=== PATIENT | female | born 1960 | race Caucasian/White ===

== ENCOUNTER 2023-09-22 09:01 | Inpatient (IN) ==
[2023-09-22] MEDS ORDERED: METOPROLOL TARTRATE 1 MG/ML VIAL IV STA ×2 (09:24→10:03)
[2023-09-22] MEDS ORDERED: SODIUM CHLORIDE 0.9% 1,000 ML IV ONE (09:24)
--- NOTE | 2023-09-22 09:33 | Emergency Department Note ---
Impression & Plan Atrial tachycardia, Acute hypokalemia, Acute dyspnea, Acute exacerbation of CHF (congestive heart failure) ED Provider Note HISTORY OF PRESENT ILLNESS: Patient is a 63-year-old female presenting with tachycardia. Patient was at a cardiology clinic appointment today when her heart rate was noted to be in the 160s and she appeared to be in atrial flutter and they sent her to the emergency department. Patient reports that her heart has felt this racing sensation for at least the last 3 weeks. She states that she has had a cold for the last 2 months and has been taking Robitussin daily. Other than that she has not had any changes in medications. Denies any DVT or PE history. She is on Coumadin and her INRs have been therapeutic. She denies any chest pain. Reports shortness of breath it has been ongoing for the last 2 months. Denies any nausea or vomiting. Denies any fevers. Denies any dysuria or hematuria. ROS: as above PHYSICAL EXAM: Constitutional: Patient appears in no acute distress. HENT: Head: Normocephalic and atraumatic. Eyes: EOMI, PERRL Mouth/Throat: Mucous membranes moist. Neck: Trachea midline. Neck supple. Cardiovascular: Tachycardic with regular rhythm. No murmurs, rubs or gallops. Intact distal pulses. Pulmonary/Chest: No respiratory distress. Breath sounds clear and equal bilaterally. No wheezes or rales. Abdominal: Abdomen soft, no tenderness, rebound or guarding. Musculoskeletal: No edema, tenderness or deformity noted. Skin: Warm and dry. No rash, erythema, pallor or cyanosis Psychiatric: Appropriate mood and affect for situation. Neurological: Alert and keenly responsive. CN II-XII grossly intact, moving all extremities equally and fully. MDM: - Vitals signs showed tachycardia - History obtained via patient. Patient presents with tachycardia. Patient was at cardiology clinic today when she had an EKG performed that showed atrial tachycardia with a heart rate in the 160s. Patient reports that she has felt like her heart has been racing and slightly short of breath for the last 3 weeks. Reports she has had a cold for the last 2 months and is not taking Robitussin. Denies any other medication changes. She is on Coumadin and states her INRs have been therapeutic. She is on Coumadin for history of aortic valve replacement. Denies any chest pain. - Chronic conditions affecting care: HTN; HLD; aortic valve replacement (1987; on coumadin) - Differential diagnoses include, but are not limited to: dysrhythmia; electrolyte abnormality; PE; ACS; medication side effect; pneumonia - Order placed for continuous cardiac monitoring. At this time, monitor showed rate of 125 bpm with regular rhythm, per my interpretation. - External medical records reviewed. [facility] cardiology clinic visit note from today reviewed. Patient had new onset atrial flutter with rates in the 160s at clinic. They reported that she was symptomatic with anxiety like symptoms and shortness of breath. They note that her last echocardiogram was in December 2021. - EKG reviewed by myself showed atrial flutter. Rate tachycardic at 155 bpm. QTc 487. No acute ischemic changes. - Laboratory workup interpreted by myself showed normal WBC; INR 4; hypokalemia (K 3.4); normal troponin; elevated BNP (549) - Patient given 1L NS and 10 mEq IV potassium replacement - CXR shows some pulmonary vascular congestion, per my interpretation - Patient initially given 5 mg of IV Lopressor and her heart rate went from the 160s to the 140s. She was then given an additional 5 mg of IV Lopressor and her heart rate went down to the 130s - Discussed case with facing machine operator on-call, Dr. Kim. He recommended admission to medicine service and plan for repeat echocardiogram. Plan for potential cardioversion inpatient. He ordered 40 mg of IV Lasix for the patient - Discussion was had with care coordinator about patient's case and need for admission - Hospitalist consulted for admission - Patient admitted to [facility] service for further evaluation and management. ASSESSMENT AND PLAN: Diagnosis: Atrial tachycardia; hypokalemia; CHF exacerbation; acute dyspnea Plan: admit Past Med/Surg History Medical History (Updated 09/22/23 @ 12:43 by Delilah Solomon MD) History of transcatheter aortic valve replacement (TAVR) Hypokalemia SOB (shortness of breath) Cough (HFpEF) heart failure with preserved ejection fraction Tachycardia On anticoagulant therapy Hypertension Hyperlipidemia Irregular heart beat Sleep apnea cpap Surgical History History of hysterectomy with unilateral oophorectomy History of open reduction and internal fixation (ORIF) procedure right tib/fib, ankle fx--hardware in place in ankle History of colonoscopy History of esophagogastroduodenoscopy (EGD) History of oral surgery History of tooth extraction wisdom teeth History of cardiac cath 1987 no stent H/O aortic valve replacement 1987 @ [facility]---follows with Dr. Sahu Social History Smoking Status: Never smoker Second Hand Exposure: No; Do You Dip or Chew Tobacco: No; Hx Alcohol Use: Yes Alcohol type: wine and hard liquor Hx Substance Use: No Preferred Language: German Communication Ability: Effective Pre Press Manager Required: No Beliefs That Will Affect Care: None Current Living Situation: Spouse Feels Safe at Home: Yes Assistive Devices: CPAP and Glasses Allergies Allergies Allergy/AdvReac Type Severity Reaction Status Date / Time codeine Allergy RASH Verified 10/02/18 10:19 Home Meds Home Medications Medication Instructions Recorded Confirmed amlodipine 5 mg tablet 2.5 mg PO QAM 10/01/18 09/22/23 amoxicillin 500 mg capsule 2,000 mg PO UD PRN prior to dental 10/01/18 09/22/23 procedures loratadine 10 mg tablet 10 mg PO DAILY PRN Allergy Symptoms 10/01/18 09/22/23 simvastatin 20 mg tablet 20 mg PO QAM 10/01/18 09/22/23 warfarin 5 mg tablet 2.5 mg PO QPM 10/01/18 09/22/23 PreserVision AREDS 1 tab PO AMPM 09/22/23 09/22/23 [id number]-[id number]-frizox tablet 1 tab PO QAM 09/22/23 09/22/23 Results & Data (ED) Vital Signs Vital Signs - 24 hr 09/22/23 09:08 09/22/23 09:29 09/22/23 09:29 Temperature 36.6 C Temperature Source Temporal Artery Scan Pulse Rate 154 H Pulse Rate [Apical] 165 H Respiratory Rate 16 Respiratory Depth Blood Pressure 122/79 Blood Pressure [Left Arm] Blood Pressure Mean 93 Blood Pressure Mean [Left Arm] Pulse Oximetry 95 96 Oxygen Delivery Method Room Air Sepsis Recent Fever Within 48 Hours No Sepsis New/Unexplained Change in Mental Status No Sepsis Action Taken by Nursing No Action Required 09/22/23 09:29 09/22/23 09:32 09/22/23 09:49 Temperature Temperature Source Pulse Rate 125 H 138 H Pulse Rate [Apical] Respiratory Rate Respiratory Depth Blood Pressure 152/116 H Blood Pressure [Left Arm] Blood Pressure Mean Blood Pressure Mean [Left Arm] Pulse Oximetry 96 Oxygen Delivery Method Room Air Sepsis Recent Fever Within 48 Hours Sepsis New/Unexplained Change in Mental Status Sepsis Action Taken by Nursing 09/22/23 09:54 09/22/23 10:08 09/22/23 10:14 Temperature Temperature Source Pulse Rate 132 H Pulse Rate [Apical] 133 H 132 H Respiratory Rate 18 16 Respiratory Depth Normal Normal Blood Pressure 140/113 H Blood Pressure [Left Arm] 152/116 H 142/119 H Blood Pressure Mean Blood Pressure Mean [Left Arm] 128 126 Pulse Oximetry 93 94 Oxygen Delivery Method Room Air Room Air Sepsis Recent Fever Within 48 Hours Sepsis New/Unexplained Change in Mental Status Sepsis Action Taken by Nursing 09/22/23 10:19 09/22/23 11:39 Temperature Temperature Source Pulse Rate 130 H 132 H Pulse Rate [Apical] Respiratory Rate Respiratory Depth Blood Pressure 118/90 122/95 Blood Pressure [Left Arm] Blood Pressure Mean Blood Pressure Mean [Left Arm] Pulse Oximetry Oxygen Delivery Method Sepsis Recent Fever Within 48 Hours Sepsis New/Unexplained Change in Mental Status Sepsis Action Taken by Nursing Laboratory Data 09/22/23 09:20 09/22/23 09:20 Lab Results 09/22/23 Range/Units 09:20 WBC 9.43 (4.8-10.8) K/ul RBC 4.77 (4.20-5.40) M/uL Hgb 13.8 (12.0-16.0) g/dl Hct 43.5 (37.0-47.0) % MCV 91.2 (80.0-100.0) fL MCH 28.9 (25.0-34.0) pg MCHC 31.7 L (32.0-36.0) g/dL RDW Std Deviation 52.2 H (36.4-46.3) fL RDW Coeff of Genet 15.7 H (11.5-14.5) % Plt Count 346 (130-400) K/uL MPV 10.9 (9.4-12.4) fL Immature Gran % (Auto) 0.5 % Neut % (Auto) 77.4 % Lymph % (Auto) 13.4 % [place] % (Auto) 6.5 % Eos % (Auto) 1.9 % Baso % (Auto) 0.3 % Neut # (Auto) 7.30 H (1.40-6.50) K/uL Lymph # (Auto) 1.26 (1.20-3.40) K/uL [place] # (Auto) 0.61 H (0.11-0.59) K/uL Eos # (Auto) 0.18 (0.00-0.50) K/uL Baso # (Auto) 0.03 (0.00-0.20) K/uL Immature Gran # (Auto) 0.05 (0.01-0.20) K/uL PT 40.5 H (9.0-12.0) Seconds INR 4.0 H (0.9-1.1) Sodium 143 (136-145) mmol/L Potassium 3.4 L (3.5-5.1) mmol/L Chloride 109 H (98-107) mmol/L Carbon Dioxide 24 (21-32) mmol/L Anion Gap 10 (3-11) BUN 15 (6-23) mg/dl Creatinine 0.83 (0.6-1.2) mg/dl Est Cr Clr Drug Dosing 91.3 ml/min Est GFR ( Amer) 87.6 ml/min Est GFR (Non-Af Amer) 75.6 ml/min BUN/Creatinine Ratio 18.1 (10-20) Glucose 110 H (70-99(Fasting)) mg/dl Calcium 9.2 (8.6-10.3) mg/dl Magnesium 2.0 (1.7-2.4) mg/dl Total Bilirubin 0.6 (0.2-1.0) mg/dl AST 22 (13-39) U/L ALT 24 (7-52) U/L Alkaline Phosphatase 103 (34-104) U/L Troponin I High Sens 10.1 (0-14) pg/ml B-Natriuretic Peptide 549 H (0-100) pg/ml Total Protein 7.0 (6.0-8.3) gm/dl Albumin 4.1 (3.4-5.0) gm/dl Globulin 2.9 (2.5-4.0) gm/dl Albumin/Globulin Ratio 1.4 (0.9-2) Lipase 21 (11-82) U/L Administered Medications Discontinued Medications Sodium Chloride (Nss) 1,000 mls @ 999 mls/hr IV .Q1H1M ONE Stop: 09/22/23 10:24 Last Infusion: 09/22/23 11:39 Dose: Infused Documented By: Admin: 09/22/23 09:29 Dose: 999 mls/hr Documented By: ANEL Potassium Chloride (K Ye / Wtr) 10 meq in 100 mls @ 100 mls/hr IV ONE ONE Stop: 09/22/23 11:02 Last Infusion: 09/22/23 11:39 Dose: Infused Documented By: Admin: 09/22/23 10:19 Dose: 100 mls/hr Documented By: MARTÍN Metoprolol Tartrate (Metoprolol Tartrate 1 Mg/Ml Vial) 5 mg IV NOW STA Stop: 09/22/23 09:25 Last Admin: 09/22/23 09:49 Dose: 5 mg Documented By: MARTÍN Metoprolol Tartrate (Metoprolol Tartrate 1 Mg/Ml Vial) 5 mg IV NOW STA Stop: 09/22/23 10:04 Last Admin: 09/22/23 10:19 Dose: 5 mg Documented By: MARTÍN Imaging Data Radiologist's Impression: Chest X-Ray 09/22/23 09:13 XR chest 1V portable HISTORY: 62 years-old Female Chest pain, nonspecific COMPARISON: None TECHNIQUE: AP view of the chest FINDINGS: Cardiac silhouette is enlarged. Median sternotomy. Pulmonary vascular congestion with interstitial coarsening. No pneumothorax. Mild bibasilar densities. Asymmetric right hilar prominence. Degenerative changes of the shoulders and spine. IMPRESSION: 1. Cardiomegaly with pulmonary vascular congestion. 2. Asymmetric right hilar prominence is noted without comparison available. Differential considerations include adenopathy, pulmonary lesion versus summation density from pulmonary vasculature. Correlate with prior imaging. ACT 112: Negative or not required by law. The above report was generated using voice recognition software. It may contain grammatical, syntax or spelling errors. Electronically signed by: Emil Balderas M.D. 09/22/2023 9:43 AM Discharge Plan Visit Data Chief Complaint: Tachycardia Stated Complaint: TACHYCARDIA ED Provider: Delilah Solomon Discharge Problem: Atrial tachycardia, Acute hypokalemia, Acute dyspnea, Acute exacerbation of CHF (congestive heart failure) Forms Stand Alone Forms: My [facility] Prescriptions Prescriptions: No Action amoxicillin 500 mg Capsule 2,000 mg PO UD PRN (Reason: prior to dental procedures) amlodipine 5 mg Tablet 2.5 mg PO QAM simvastatin 20 mg Tablet 20 mg PO QAM warfarin 5 mg Tablet 2.5 mg PO QPM Rx Instructions: everyday but monday. None on tuesdays loratadine 10 mg Tablet 10 mg PO DAILY PRN (Reason: Allergy Symptoms) Centrum Silver Tablet 1 tab PO QAM PreserVision AREDS 1 tab PO AMPM Referrals Referrals: Madeline Messina DO [Primary Care Provider] -
[2023-09-22 09:43] LABS: Basophils # (auto) 0.03 K/uL (0.00-0.20); Basophils % (auto) 0.3 %; Eosinophils # (auto) 0.18 K/uL (0.00-0.50); Eosinophils % (auto) 1.9 %; Hematocrit (blood only) 43.5 % (37.0-47.0); Hemoglobin 13.8 g/dl (12.0-16.0); Immature Granulocytes # (auto) 0.05 K/uL (0.01-0.20); Immature Granulocytes % (auto) 0.5 %; Lymphocytes # (auto) 1.26 K/uL (1.20-3.40); Lymphocytes % (auto) 13.4 %; Mean Corpuscular Hemoglobin 28.9 pg (25.0-34.0); Mean Corpuscular Hgb Conc 31.7 g/dL (32.0-36.0); Mean Corpuscular Volume 91.2 fL (80.0-100.0); Mean Platelet Volume 10.9 fL (9.4-12.4); Monocytes # (auto) 0.61 K/uL (0.11-0.59); Monocytes % (auto) 6.5 %; Neutrophils % (auto) 77.4 %; Platelet Count 346 K/uL (130-400); RDW Coefficient of Variation 15.7 % (11.5-14.5); RDW Standard Deviation 52.2 fL (36.4-46.3); Red Blood Count 4.77 M/uL (4.20-5.40); White Blood Count 9.43 K/ul (4.8-10.8)
--- NOTE | 2023-09-22 09:44 | XRay Report ---
XR chest 1V portable HISTORY: 62 years-old Female Chest pain, nonspecific COMPARISON: None TECHNIQUE: AP view of the chest FINDINGS: Cardiac silhouette is enlarged. Median sternotomy. Pulmonary vascular congestion with interstitial co arsening. No pneumothorax. Mild bibasilar densities. Asymmetric right hilar prominence. Degenerative changes of the shoulders and spine. IMPRESSION: 1. Cardiomegaly with pulmonary vascular congestion. 2. Asymmetric right hilar prominence is noted without comparison available. Differential consideratio ns include adenopathy, pulmonary lesion versus summation density from pulmonary vasculature. Correlat e with prior imaging. ACT 112: Negative or not required by law. The above report was generated using voice recognition software. It may contain grammatical, syntax o r spelling errors. Electronically signed by: Emil Balderas M.D. 09/22/2023 9:43 AM
[2023-09-22 09:57] LABS: Albumin Globulin Ratio 1.4 (0.9-2); Albumin Level 4.1 gm/dl (3.4-5.0); BUN Creatinine Ratio 18.1 (10-20); Bilirubin,Total 0.6 mg/dl (0.2-1.0); Calcium 9.2 mg/dl (8.6-10.3); Creatinine Clr Calc Pharmacy 91.3 ml/min; Est GFR (African American) 87.6 ml/min; Est GFR (Non-African American) 75.6 ml/min; Globulin 2.9 gm/dl (2.5-4.0); Potassium 3.4 mmol/L (3.5-5.1)
[2023-09-22 10:03] LABS: Prothrombin Time 40.5 Seconds (9.0-12.0); Troponin I High Sensitivity 10.1 pg/ml (0-14)
[2023-09-22] MEDS ORDERED: POTASSIUM CHLORIDE / WTR 10 MEQ/100 ML PLCT IV ONE (10:03)
--- OUTSIDE RECORDS SUMMARY | 2023-09-22 11:21 | External Medical Summary | Summary of Care ---
Author Name Unknown Organization [facility] Address [address] [place] [address] Phone [phone] Care Team Providers Care National Flatbed Truck Driver Name Role Phone Madeline Messina Primary Care Provider Reason for Visit * Reason Comments Follow Up Encounter Details Date Type Department Care Team (Late st Contact Info) Description 09/22/2023 8:00 AM EST Office Visit Cardiology, [facility] [address] [facility] [phone] Linnette Corbin CRNP [address] [facility], [place] [phone] Atrial flutter, unspecified type (HCC)*; S/P aortic valve replacement; HTN, goal below 130/80; Dyslipidemia, goal LDL below 100; Enlarged aorta (HCC); MADAI (obstructive sleep apnea) Allergies Active Allergy Reactions Criticality Noted Date Comments Morphine And Related Rash 12/29/2008 Codeine documented as of this encounter (statuses as of 09/22/2023) Medications Medication Sig Dispensed Refills Start Date End Date Status LORATADINE 10 MG PO TABSIndications:All ergic rhinitis One pill by mouth once a day as needed for allergies 30 Tab 5 06/22/2012 Active Amoxicillin 500 MG Oral Capsule (AMOXIL)Indications :S/P aortic valve replacement,SBE (subacute bacterial endocarditis) prophylaxis candidate Take 4 tablets by mouth 1 hour prior to dental procedures 4 Cap 11 08/18/2020 Active CPAP every night at bedtime. 0 Active Multi-Day Vitamins Oral Tablet Take 1 Tab by mouth daily. 0 Active Warfarin Sodium 5 MG Oral Tablet (Coumadin)Indicatio ns:S/P aortic valve replacement TAKE 1/2 TABLET BY MOUTH DAILY OR DIRECTED BY COUMADIN CLINIC. 45 Tablet 3 10/05/2022 Active Simvastatin 20 MG Oral Tablet (Zocor)Indications: Dyslipidemia, goal LDL below 100 Take 1 Tablet by mouth in the morning. 90 Tablet 3 12/29/2022 Active ICaps AREDS Formula Oral Tablet Take by mouth. 0 Active amLODIPine Besylate 2.5 MG Oral Tablet (Norvasc) Take 1 Tablet by mouth in the morning. 90 Tablet 5 12/29/2022 Active Molnupiravir 200 MG Oral Capsule Take 4 Capsules by mouth in the morning and 4 Capsules before bedtime. 40 Capsule 0 02/17/2023 Active Additional Information Patient not taking.Reported on 09/22/2023 documented as of this encounter (statuses as of 09/22/2023) Active Problems Problem Noted Date Diagnosed Date Morbid obesity due to excess calories 09/06/2021 Body mass index (BMI) of 45.0 to 49.9 in adult 1 Overview: Per Obesity protocol #1 HTN, goal below 140/90 03/28/2016 Overview: Per HTN Protocol Dyslipidemia, goal LDL below 100 05/11/2010 [facility] current use of anticoagulant therapy 0 11/24/2009 Overview: ICD-10 update of inactive term Sleep apnea, obstructive 09/25/2009 Overview: CPAP 14 cwp 2008 PSG AHP S/P aortic valve replacement 12/29/2008 documented as of this encounter (statuses as of 09/22/2023) Resolved Problems Problem Noted Date Diagnosed Date Resolved Date Severe obesity with body mas s index (BMI) of 35.0 to 39.9 with serious comorbidity 01/11/2010 Overview: Per Obesity Taxonomy ICD-10 update of inactive diagnosis Obesity, BMI not known 08/08/200901/11 Overview: Per Obesity Taxonomy HTN, goal to be determined 08/04/2009 0 03/31/2016 ADVANCE DIRECTIVE INFORMATION 12/29/2008 08/31/2017 Overview: Yes. Pt advised to bring in copy. documented as of this encounter (statuses as of 09/22/2023) Immunizations Name Administration Dates Next Due COVID-19 mRNA, LNP-s, No Pre serve, 2-Dose Series (Moderna) 08/09/2021,01/18/2021,12/21/2020 Covid-19, Mrna, Lnp-s, Pf, B ivalent, 50 Mcg, IM, 12 yrs and above (Moderna) 08/20/2022 Pneumococcal Conjugate Vacc, 13 Valent (Prevnar) 09/03/2018 Pneumococcal Polysaccharide PPV23 (Pneumovax) 05/11/2010 SEASONAL INFLUENZA, PF, 6 M & Above, IM , (FLULAVAL or FLUZONE) 07/20/2020,07/27/2019,08/21/2017 Seasonal Influenza Virus Vac cine, Unspecified Formulation 07/18/2022 Seasonal Influenza, QUAD, wi th Preserv, 6 mons & Above, 0.5 mL, IM 07/19/2021 Seasonal Influenza, Quadriva lent, No Preserve, IM 08/20/2018,08/29/2016 Seasonal Influenza, Split, I IV3, With Preserve, Inj 07/14/2015,08/25/2014,08/02/2013,06/22,01/09/2012(Deferred: Patient Refused),08/13/2010,08/04/2009 TD, Preservative Free 09/05/2019 TDAP (age 11 and older)(Adacel) 05/05/2009 Zoster Vaccine Recombinant (Shingrix) 03/21/2023 ,12/29/2022 documented as of this encounter Social History Tobacco Use Types Packs/Day Years Used Date Smoking Tobacco: Never Smokeless Tobacco: Never Alcohol Use Standard Drinks/Week Comments Yes 0 (1 standard drink = 0.6 oz pur e alcohol) socially during holidays PHQ-2 Answer Date Recorded PHQ-2 Score 0 08/24/2020 Sex and Gender Information Value Date Recorded Sex Assigned at Not on file Gender Identity Not on file Sexual Orientation Not on file Job Start Date Occupation Industry Not on file Not on file Not on file documented as of this encounter Last Filed Vital Signs Vital Sign Reading Time Taken Comments Blood Pressure 126/84 09/22/2023 7:55 AM EST Pulse 154 09/22/2023 7:55 AM EST irreg ular Temperature - - Respiratory Rate 18 09/22/2023 7:55 AM EST Oxygen Saturation 95% 09/22/2023 7:55 AM EST room air Inhaled Oxygen Concentration - - Weight 123.8 kg (273 lb) 09/22/2023 7:55 AM EST Height - - Body Mass Index 46.86 01/25/2023 6:52 AM EDT documented in this encounter Progress Notes * Linnette Corbin CRNP - 09/22/2023 8:00 AM EST Cardiology Outpatient Visit 09/22/2023 Primary Hl7 Interface Developer: Formally Dr. Sahu Past medical history: Aortic valve replacement with cage-ball valve, 1987 Hypertension Enlarged aortic root/ascending aorta, 4.1 cm/4.75 cm respectively (12/2021) Dyslipidemia MADAI, on CPAP HPI 62-year-old female presenting to the cardiology office in routine follow-up. Was last evaluated by Dr. Sahu approximately 1 year ago. Patient carries history of aortic valve replacement with cage ball valve in 1987. Most recent echocardiogram completed 12/2021 aortic valve prosthesis gradients within normal limits. Today the patient presents feeling a little anxious. Heart rates were elevated in the 150s. An EKG was obtained showing atrial flutter with PVCs, 159 beats per minute. She became acutely dyspneic while getting the EKG. Denies chest pain. Has been more short of breath since the end of July, has been attributing it to cold symptoms. Has been taking Robitussin DM for a few months now. Also, over the last 6-8 weeks her Fitbit has been reading elevated heart rate. She thought it was an air and stopped wearing it. She is currently denying any chest pain. Is visibly dyspneic with speaking. No palpitations. No lightheadedness or dizziness. Noting worsening lower extremity edema. No fever, chills, cough, hematochezia, melena, or hemoptysis. Patient is compliant with all medications, and offers no side effects. Current Outpatient Medications Medication Sig Dispense Refill LORATADINE 10 MG PO TABS One pill by mouth once a day as needed for allergies 30 Tab 5 Multi-Day Vitamins Oral Tablet Take 1 Tab by mouth daily. Warfarin Sodium 5 MG Oral Tablet (Coumadin) TAKE 1/2 TABLET BY MOUTH DAILY OR DIRECTED BY COUMADIN CLINIC. 45 Tablet 3 Simvastatin 20 MG Oral Tablet (Zocor) Take 1 Tablet by mouth in the morning. 90 Tablet 3 amLODIPine Besylate 2.5 MG Oral Tablet (Norvasc) Take 1 Tablet by mouth in the morning. 90 Tablet 5 Amoxicillin 500 MG Oral Capsule (AMOXIL) Take 4 tablets by mouth 1 hour prior to dental procedures 4 Cap 11 CPAP every night at bedtime. ICaps AREDS Formula Oral Tablet Take by mouth. Molnupiravir 200 MG Oral Capsule Take 4 Capsules by mouth in the morning and 4 Capsules before bedtime. (Patient not taking: Reported on 09/22/2023) 40 Capsule 0 No current facility-administered medications for this visit. Past Medical History: Diagnosis Date Aortic valve stenosis HTN, goal below 140/90 INFORMATION 05/22/08 echo.LVH, EF 55% INFORMATION 08/25/09 negative myoview stress test, EF 63% mft (current) use of anticoagulants Obesity, BMI not known Sleep apnea CPAP 14 cwp Sleep apnea, obstructive Past Surgical History: Procedure Laterality Date ARTHO,SHOUL,W/ROTATOR CUFF Left 09/08/2020 ARTHROSCOPY SHOULDER ROTATOR CUFF performed by Gabriella Campuzano DO at OR [facility] COLONOSCOPY several prior to 2018 COLONOSCOPY, DIAGNOSTIC (RECTUM) 10/02/2018 diverticulosis, repeat 5 yrs/[facility] INFORMATION 1988 aortic valve replacement, [facility] Valve INFORMATION right ankle and leg fracture repaired surgery REMOVAL OF OVARY(S) 1998 unilateral - unsure which side REPLACEMENT OF AORTIC VALVE (ROSS) N/A has only had 1 AVR procedure SHOULDER ARTHROSCOPY, BICEPS TENODESIS Left 09/08/2020 ARTHROSCOPY SHOULDER BICEP TENODESIS performed by Gabriella Campuzano DO at OR [facility] TOTAL ABD HYSTERECTOMY W/WO REMOVAL OF TUBE(S) 1998 for fibroids, one ovary perserved Social History Tobacco Use Smoking status: Never Smokeless tobacco: Never Vaping Use Vaping Use: Never used Substance Use Topics Alcohol use: Yes Comment: socially during holidays Drug use: No Review of patient's allergies indicates: Allergen Reactions Morphine And Related Rash Codeine Review of Systems: See HPI for pertinent positives. All others negative, other than those noted in HPI. Physical Exam BP 126/84 | Pulse 154 Comment: irregular | Resp 18 | Wt 123.8 kg (273 lb) | BMI 46.86 kg/m | BSA 2.36 m General: No acute distress. A+Ox3. HEENT: Normocephalic. Atraumatic. Conjunctiva and sclera clear. NECK: No carotid bruits. No JVD. Carotid upstrokes are brisk. Heart: Irregular rhythm, rapid rate. S1 and S2 noted. +3/6 systolic ejection murmur Lungs: + wheezing, fine rales bilateral bases Abdomen: Normal bowel sounds. Soft. Nontender. No masses or organomegaly. No abdominal bruits. Extremities: +1 bilateral pitting lower extremity edema No clubbing or cyanosis. Pulses: radial=2/4, posterior tibial=2/4, dorsalis pedis = 2/4. NEURO: No focal deficits. PSYCH: Normal. Lab data/imaging study review: Echo 12/2021 The examination is adequate to evaluate the referral indication. Overall images are of fair technical quality The left ventricular cavity size is normal. The LV wall thickness is mildly increased (concentric). The left ventricular wall motion is normal. The qualitative LV ejection fraction is 55-59% (normal). There is an aortic valve ball in cage mechanical prosthesis present. The aortic valve prosthesis systolic gradients are normal for this type prosthesis. Aortic valve prosthesis stenosis is absent. The left ventricular diastolic function is mildly abnormal (grade I). The aortic root and proximal ascending aorta are moderately enlarged. (4.1/4.5 cm) Compared to prior study of December 12, 2019, there is no significant change. Impression/Plan: 1. Atrial flutter, unspecified type (HCC) New onset atrial flutter with rates up into the 160s. Patient is symptomatic with anxiety like symptoms and shortness of breath. Atrial flutter likely present over the last 6-8 weeks. Given acute symptoms as well as prior complex cardiac history with aortic valve replacement with ball and cage valve recommend presenting to [facility] Emergency Department for further workup and care. Patient is agreeable however declining EMS transport. Has been agreeable to come pick her up and bring her to the emergency department. Recommend improvement in heart rates. Thankfully she is already anticoagulated with Coumadin given her mechanical prosthetic aortic valve. Consider repeat echocardiogram to reassess valvular gradients and LV systolic function Patient appears mildly hypervolemic on exam, may require cautious diuresis. 2. S/P aortic valve replacement -H/o aortic valve replacement with cage-ball valve, 1987. -Stable gradients per last echo 12/2021 Continue Coumadin, INR goal between 2.5-3.5 Repeat resting echocardiogram in December 2023 to reassess aortic valve gradients as well as aortic dilation. 3. HTN, goal below 130/80 Controlled. 1. Continue amlodipine 2.5 mg daily 4. Dyslipidemia, goal LDL below 100 -LDL controlled, 84 (10/2022) -The 10-year ASCVD risk score (Leatha DENTON, et al., 2019) is: 5.3% Values used to calculate the score: Age: 62 years Sex: Female Is Non- : No Diabetic: No Tobacco smoker: No Systolic Blood Pressure: 126 mmHg Is BP treated: Yes HDL Cholesterol: 44 mg/dL Total Cholesterol: 168 mg/dL Currently on simvastatin 20 mg daily, Consider transitioning to Crestor 10 mg daily. 4. Enlarged aorta (HCC) -The aortic root and proximal ascending aorta are moderately enlarged. (4.1/4.5 cm) -Stable per echo 12/2021 5. MADAI (obstructive sleep apnea) On CPAP The patient agrees to the above plan and will call with additional questions or concerns. ER with all emergencies advised. I spent a total of 40 minutes on the date of service in preparation, delivery, and documentation ofthe care provided to Paz Cleveland excluding any time spent in the performance of separately billed services. ЕЛЕНА Carson [facility], Department of Cardiology This chart was completed in part utilizing [employer] Speech Voice Recognition Software. Grammatical errors, random word insertions, prounoun errors, and incomplete sentences are an occasional consequence of this system due to software limitations, ambient noise, and hardware issues. Any formal questions or concerns about the content, text, or information contained within the body of this dictation should be directly addressed to the provider for clarification. documented in this encounter Nursing Notes * Wilfredo Workman RN - 09/22/2023 7:52 AM EST Examination Room: room 7 Name: Paz Cleveland Date of : (1960). Reason for Visit: for follow up Interim Hospitalization(s): denies Problems/Concerns: very short of breath lying down Chest Pain/SOB: as above denies [facility] Discussed: Not applicable [facility] is a way you can talk to your provider online through e-mail. Would you like to sign up? I can activate it for you? ALREADY ACTIVE Patient was instructed to not get up on the exam table until directed and assisted by their provider; patient is to remain seated in the chair/ wheelchair/ exam table for fall prevention and safety reasons. Patient is aware to have assistance to step down off exam table with personnel. Patient voiced full comprehension of instructions. documented in this encounter Plan of Treatment Upcoming Encounters Date Type Department Care Team (Late st Contact Info) Description 10/26/2023 8:00 AM EST Anticoagulation Pharmacy, [facility] [place] [address] [place] [id number] Pharmacist1, [facility] [address] [place] [address] 11/24/2023 8:30 AM EST Imaging Radiology [facility] [address] [facility] [place] [address] [address] 01/01/2024 10:40 AM EDT Office Visit Family Practice [facility] [place] [address] [place] [address] Madeline Messina, [address] [place] [address] 01/30/2024 9:00 AM EDT Office Visit Sleep Disorders Ctr [facility] [address] [facility] [place] [phone] Aileen Cisneros CRNP [address] [place] [address] Scheduled Orders Name Type Priority Associated Diagnoses Orde r Schedule EKG COMPLETE (TRACING AND INTERP) EKG Routine S/P aortic valve replacement HTN, goal below 130/80 Dyslipidemia, goal LDL below 100 Enlarged aorta (HCC) MADAI (obstructive sleep apnea) Ordered: 09/22/2023 Scheduled Procedures Name Priority Associated Diagnoses Date/Ti me COLONOSCOPY FLEXIBLE PROXIMAL DIAGNOSTIC Recall History of colon polyps Health Maintenance Due Date Last Done Comments HIV Screening 1975 Hepatitis C Screening 1978 Depression Screening 08/24/2021 08/24/2020 COVID-19 Vaccine (2022- season) 2023 08/20/2022, 08/09/2021, 01/18/2021, Additional history exists COLONOSCOPY-EVERY 5 YRS AGES 18-100 10/02/2023 10/02/2018, 09/04/2013 GFR 11/15/2023 11/15/2022, 08/17, 07/29/2020, Additional history exists Mammogram 11/23/2023 11/23/2022, 03/16, 10/17/2019, Additional history exists Diabetes Screening 11/15/2025 11/15/2022, 1 11/13/2020, 09/08/2020, Additional history exists Albumin/Creatinine Ratio 11/16/2025 023, 11/29/2010, 12/29/2008 Lipid Panel 11/15/2027 11/15/2022, 08/17, 07/29/2020, Additional history exists DTaP,Tdap,and Td Vaccines (3 - Td or Tdap) 09/05/2029 09/05/2019, 05/05/2009 Pneumococcal Vaccine: Pediatrics (0 to 5 Years) and At-Risk Patients (6 to 64 Years) Aged Out 09/03/2018, 05/11/2010 No longer eligibl e based on patient's age to complete this topic Zoster Vaccines Completed 03/21/2023, 12/29/2022 Influenza Vaccine (FLU shot) Completed 12/2022, 07/18/2022, 07/19/2021, Additional history exists GARDASIL-HPV IMMUNIZATION SERIES Aged Out No longer eligible based on patient's age to complete this topic Hepatitis B Aged Out No longer eligi ble based on patient's age to complete this topic MENINGOCOCCAL (MENACTRA/MENVEO) Aged Out No longer eligible based on patient's age to complete this topic documented as of this encounter Medical Devices Implanted Type Area Souvenir Assembler Device Identifier Shelf Expiration Date Model / Serial / Lot Implant Sut Anch 5.5x19.1mm - [id number] Implanted:Qty: 1 on 09/08/2020 by Gabriella Campuzano DO at OR [facility] Left: Shoulder [employer] 01/13/2021 [id number] / / [id number] documented as of this encounter Visit Diagnoses Diagnosis Atrial flutter, unspecified type (HCC)- Primary S/P aortic valve replacement Heart valve replaced by other means HTN, goal below 130/80 Unspecified essential hypertension Dyslipidemia, goal LDL below 100 Other and unspecified hyperlipidemia Enlarged aorta (HCC) Other specified disorders of arteries and arterioles MADAI (obstructive sleep apnea) Obstructive sleep apnea (adult) (pediatric) documented in this encounter Advance Directives Latest Code Status on File Code Status Date Activated Date Inactivated Comments Full Code 09/08/2020 2:46 PM 09/08/2020 8:44 PM Thi s order reflects the patients wishes and were consensually agreed upon. Care Teams National Flatbed Truck Driver Relationship Specialty Start Date End Date Madeline Messina DO [address] [place] [address] PCP - General Family Medicine 11/22/18 documented as of this encounter"
--- OUTSIDE RECORDS SUMMARY | 2023-09-22 11:21 | External Medical Summary | Summary of Care ---
Author Name Unknown Organization [facility] Address [address] [place] [address] Phone [phone] Care Team Providers Care Crane Oiler Name Role Phone Madeline Messina Primary Care Provider Reason for Visit * Reason Comments Follow Up Encounter Details Date Type Department Care Team (Late st Contact Info) Description 09/22/2023 8:00 AM EST Office Visit Cardiology, [facility] [address] [facility] [phone] Linnette Corbin CRNP [address] [facility], [place] [phone] Atrial flutter, unspecified type (HCC)*; S/P aortic [...] Protocol Dyslipidemia, goal LDL below 100 05/11/2010 [facility] current use of anticoagulant therapy 0 11/24/2009 [...] AM EST Cardiology Outpatient Visit 09/22/2023 Primary Baseball Glove Shaper: Formally Dr. Sahu Past medical history: Aortic [...] 08/25/09 negative myoview stress test, EF 63% intermediate manager (current) use of anticoagulants Obesity, BMI not known Sleep apnea CPAP 14 cwp Sleep apnea, obstructive Past Surgical History: Procedure Laterality Date ARTHO,SHOUL,W/ROTATOR CUFF Left 09/08/2020 ARTHROSCOPY SHOULDER ROTATOR CUFF performed by Gabriella Campuzano DO at OR [facility] COLONOSCOPY several prior to 2018 COLONOSCOPY, DIAGNOSTIC (RECTUM) 10/02/2018 diverticulosis, repeat 5 yrs/[facility] INFORMATION 1988 aortic valve replacement, [facility] Valve INFORMATION right ankle and leg fracture repaired surgery REMOVAL OF OVARY(S) 1998 unilateral - unsure which side REPLACEMENT OF AORTIC VALVE (ROSS) N/A has only had 1 AVR procedure SHOULDER ARTHROSCOPY, BICEPS TENODESIS Left 09/08/2020 ARTHROSCOPY SHOULDER BICEP TENODESIS performed by Gabriella Campuzano DO at OR [facility] TOTAL ABD HYSTERECTOMY W/WO REMOVAL OF TUBE(S) [...] ball and cage valve recommend presenting to [facility] Emergency Department for further workup and care. [...] performance of separately billed services. ЕЛЕНА Carson [facility], Department of Cardiology This chart was completed in part utilizing [employer] Speech Voice Recognition Software. Grammatical errors, random [...] Description 10/26/2023 8:00 AM EST Anticoagulation Pharmacy, [facility] [place] [address] [place] [address] Pharmacist1, [facility] [address] [place] [address] [address] 11/24/2023 8:30 AM EST Imaging Radiology [facility]st [facility] [place] [address] [address] 01/01/2024 10:40 AM EDT Office Visit Family Practice [facility] [place] [address] [place] [address] Madeline Messina, [address] [place] [address] 01/30/2024 9:00 AM EDT Office Visit Sleep Disorders Ctr [facility] 132 [facility] [place] [phone] iAleen Cisneros CRNP [address] [place] [address] Scheduled Orders Name Type Priority Associated Diagnoses [...] this encounter Medical Devices Implanted Type Area Return Agent Airport Device Identifier Shelf Expiration Date Model / Serial / Lot Implant Sut Anch 5.5x19.1mm - [id number] Implanted:Qty: 1 on 09/08/2020 by Gabriella Campuzano DO at OR [facility] Left: Shoulder [employer] 01/13/2021 [id number] / / [id number] documented as of this encounter Visit Diagnoses [...] and were consensually agreed upon. Care Teams Crane Oiler Relationship Specialty Start Date End Date Madeline Messina DO [address] [place] [address] PCP - General Family Medicine 11/22/18 documented as of this encounter"
--- OUTSIDE RECORDS SUMMARY | 2023-09-22 11:22 | External Medical Summary ---
Author Name Unknown Address Unknown Organization K09:[facility] [place] [id number] Laboratory Report Ordering Provider Test Date Status NORBERT DONAHUE V 09/14/2023 08:08:09 Final Therapeutic ranges for non-o perative patients:
Prophylaxsis/treatment of DVT: (Range:2.0-3.0)
Treatment of pulmonary embolism:(Range:2.0-3.0)
Prevention of systemic embolism from:
-tissue heart valves
-acute myocardial infarction
-valvular heart disease
-atrial fibrillation
(Range: 2.0-3.0)
Mechanical prosthetic valves: (Range: 2.5-3.5) Observation Date Value Abnormality Reference (Units ) Status INR in Capillary blood by Coagulation assay 09/14/2023 08:08:09 3.3 (INR) Final Performing Location [facility] [place] [address]
--- OUTSIDE RECORDS SUMMARY | 2023-09-22 11:22 | External Medical Summary ---
Author Name Unknown Address Unknown Organization K09:[facility] [place] [id number] Laboratory Report Ordering Provider Test Date Status NORBERT DONAHUE V 05/04/2023 08:13:14 Final Therapeutic ranges for non-o perative patients:
Prophylaxsis/treatment of DVT: (Range:2.0-3.0)
Treatment of pulmonary embolism:(Range:2.0-3.0)
Prevention of systemic embolism from:
-tissue heart valves
-acute myocardial infarction
-valvular heart disease
-atrial fibrillation
(Range: 2.0-3.0)
Mechanical prosthetic valves: (Range: 2.5-3.5) Observation Date Value Abnormality Reference (Units ) Status INR in Capillary blood by Coagulation assay 05/04/2023 08:13:14 2.3 (INR) Final Performing Location [facility] [address]
--- OUTSIDE RECORDS SUMMARY | 2023-09-22 11:22 | External Medical Summary ---
Author Name Unknown Address Unknown Organization K09:[facility] [place] [address] Laboratory Report Ordering Provider Test Date Status NORBERT DONAHUE V 07/27/2023 08:18:15 Final Therapeutic ranges for non-o perative patients:
Prophylaxsis/treatment of DVT: (Range:2.0-3.0)
Treatment of pulmonary embolism:(Range:2.0-3.0)
Prevention of systemic embolism from:
-tissue heart valves
-acute myocardial infarction
-valvular heart disease
-atrial fibrillation
(Range: 2.0-3.0)
Mechanical prosthetic valves: (Range: 2.5-3.5) Observation Date Value Abnormality Reference (Units ) Status INR in Capillary blood by Coagulation assay 07/27/2023 08:18:15 2.7 (INR) Final Performing Location [facility] [place] [address]
--- OUTSIDE RECORDS SUMMARY | 2023-09-22 11:22 | External Medical Summary | Summary of Care ---
Author Name Unknown Organization [facility] Address [address] [place] [address] Phone [phone] Care Team Providers Care Bowling Alley Refinisher Name Role Phone Madeline Messina Primary Care Provider Encounter Details Date Type Department Care Team Description 06/20/2023 Patient Reported Data Patient Survey Ortho FORCE Allergies Active Allergy Reactions Severity Noted Date Comments Morphine And Related Rash 12/29/2008 Codeine documented as of this encounter (statuses as of 06/20/2023) Medications Medication Sig Dispensed Refills Start Date [...] before bedtime. 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 11/24/2009 Overview: ICD-10 update of inactive term Sleep apnea, obstructive 09/25/2009 Overview: CPAP 14 cwp 2008 PSG AHP S/P aortic valve replacement 12/29/2008 documented as of this encounter (statuses as of 06/20/2023) Resolved Problems Problem Noted Date Resolved Date Severe obesity with body mas s index (BMI) of 35.0 to 39.9 with serious comorbidity 01/11/2010 08/31/2017 Overview: Per Obesity Taxonomy ICD-10 update of inactive diagnosis Obesity, BMI not known 08/08/2009 0 Overview: Per Obesity Taxonomy HTN, goal to be determined 08/04/200903/31 ADVANCE DIRECTIVE INFORMATION 12/29/2008 Overview: Yes. Pt advised to bring in copy. documented as of this encounter (statuses as of 06/20/2023) Immunizations Name Administration Dates Next Due COVID-19 mRNA, LNP-s, No Pre serve, 2-Dose Series (Moderna) 08/09/2021,01/18/2021,12/21/2020 Covid-19, Mrna, Lnp-s, Pf, B ivalent, 50 Mcg, IM, 12 yrs and above (Moderna) 08/20/2022 Pneumococcal Conjugate Vacc, 13 Valent (Prevnar) 09/03/2018 Pneumococcal Polysaccharide PPV23 (Pneumovax) 05/11/2010 Seasonal Influenza Virus Vac cine, Unspecified Formulation 07/18/2022 Seasonal Influenza, PF, 6 mo ns & Above, IM , (Flulaval) 07/20/2020,07/27/2019,08/21/2017 Seasonal Influenza, QUAD, wi th Preserv, 6 [...] oz pur e alcohol) socially during holidays Sex Assigned at Date Recorded Not on file Job Start Date Occupation Industry Not on file Not on file Not on file documented as of this encounter Plan of Treatment Upcoming Encounters Date Type Specialty Care Team Description 07/27/2023 Anticoagulation Pharmacy Pharmacist1, [facility] [address] [place] [address] 11/24/2023 Imaging Radiology 01/01/2024 Office Visit Family Medicine Madeline Messina DO [address] [place] [address] 01/30/2024 Office Visit Sleep Disorders Aileen Cisneros CRNP [address] [place] [address] Scheduled Procedures Name Priority Associated Diagnoses Date/Ti me COLONOSCOPY FLEXIBLE PROXIMAL DIAGNOSTIC Recall History of colon polyps Health Maintenance Due Date Last Done Comments HIV Screening 1975 Hepatitis C Screening 1978 Depression Screening, Annual for Pts 12 and Over 08/24/2021 08/24/2020 Influenza Vaccine (FLU shot) (#1) 2023 07/18/2022, 07/19/2021, 07/20/2020, Additional history exists COLONOSCOPY-EVERY 5 YRS AGES [...] on patient's age to complete this topic COVID-19 Vaccine Completed 08/20/2022, , 01/18/2021, Additional history exists Zoster Vaccines Completed 03/21/2023, 12/29/2022 GARDASIL-HPV IMMUNIZATION SERIES Aged Out No longer eligible based on patient's age to complete this topic Hepatitis B Aged Out No longer eligi ble based on patient's age to complete this topic MENINGOCOCCAL (MENACTRA/MENVEO) Aged Out No longer eligible based on patient's age to complete this topic documented as of this encounter Medical Devices Implanted Type Area Wire Twisting Machine Operator Device Identifier Shelf Expiration Date Model / Serial / Lot Implant Sut Anch 5.5x19.1mm - [id number] Implanted:Qty: 1 on 09/08/2020 by Gabriella Campuzano DO at OR [facility] Left: Shoulder [employer] 01/13/2021 [id number] / / [id number] documented as of this encounter Advance Directives Latest Code Status on File Code Status Date Activated Date Inactivated Comments Full Code 09/08/2020 2:46 PM 09/08/2020 8:44 PM Thi s order reflects the patients wishes and were consensually agreed upon. Care Teams Bowling Alley Refinisher Relationship Specialty Start Date End Date Madeline Messina DO [address] [facility] [place] [address] PCP - General Family Medicine 11/22/18 documented as of this encounter
--- OUTSIDE RECORDS SUMMARY | 2023-09-22 11:22 | External Medical Summary | Summary of Care ---
Author Name Unknown Organization [facility] Address [address] [facility] [place] [address] Phone [phone] Care Team Providers Care Intensive Care Medicine Specialist Name Role Phone Madeline Messina DO Primary Care Provider Reason for Visit * Reason Comments Dosage Adjustment In Person (Anticoag Cl inic) Encounter Details Date Type Department Care Team (Latest Contact Info) Description 09/14/2023 8:00 AM EST Anticoagulation Pharmacy, [facility] [address] [facility] [place] [address] Pharmacist1, [facility] 200 [facility] [place] [address] S/P aortic valve replacement*; Anticoagulation management encounter; jail current use of anticoagulant therapy Allergies Active Allergy Reactions Criticality Noted Date Comments Morphine And Related Rash 12/29/2008 Codeine documented as of this encounter (statuses as of 09/14/2023) Medications Medication Sig Dispensed Refills Start Date [...] as of this encounter (statuses as of 09/14/2023) Active Problems Problem Noted Date Diagnosed Date Morbid obesity due to excess calories 09/06/2021 Body mass index (BMI) of 45.0 to 49.9 in adult 1 Overview: Per Obesity protocol #1 HTN, goal below 140/90 03/28/2016 Overview: Per HTN Protocol Dyslipidemia, goal LDL below 100 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/2010 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 0 11/24/2009 Overview: ICD-10 update of inactive term Sleep apnea, obstructive 09/25/2009 Overview: CPAP 14 cwp 2008 PSG AHP S/P aortic valve replacement 12/29/2008 documented as of this encounter (statuses as of 09/14/2023) Resolved Problems Problem Noted Date Diagnosed Date [...] as of this encounter (statuses as of 09/14/2023) Immunizations Name Administration Dates Next Due COVID-19 [...] on file documented as of this encounter Progress Notes * Chhaya Foster RPh - 09/14/2023 8:04 AM EST Medication Therapy Disease Management - Anticoagulation Patient: Paz Cleveland | : 1960 Subjective Patient-Reported Symptoms: Patient Findings Negatives: Signs/symptoms of thrombosis, Signs/symptoms of bleeding, Change in health, Change in alcohol use, Change in activity, Upcoming invasive procedure, Missed doses, Extra doses, Change in medications, Change in diet/appetite, Bruising Objective Current Warfarin Dose As of 09/14/2023 Warfarin maintenance plan: 0 mg every Tue; 2.5 mg (5 mg x 0.5) all other days INR Result As of 09/14/2023 INR goal: 2.5-3.5 INR used for dosin.3 (09/14/2023) Assessment & Plan Warfarin Plan As of 09/14/2023 Full warfarin instructions: 0 mg every Tue; 2.5 mg all other days No change documented: Chhaya Foster RPh Next INR check: 10/26/2023 Repeat PT/INR in 6 week(s) Weekly dose: not changed Additional Dosing Information: Chhaya Foster RPh Clinical Pharmacist 09/14/2023, 8:04 AM documented in this encounter Plan of Treatment Upcoming Encounters Date Type Department Care Team (Late st Contact Info) Description 10/26/2023 8:00 AM EST Anticoagulation Pharmacy, [facility] [address] [place] [address] Pharmacist1, [facility] Sp [address] [place] [address] [address] 11/24/2023 8:30 AM EST Imaging Radiology [facility] [place] [address] [facility] [place] [address] 01/01/2024 10:40 AM EDT Office Visit Family Practice [facility] [address] [place] [address] Madeline Messina, DO [address] [place] [address] 01/30/2024 9:00 AM EDT Office Visit Sleep Disorders [facility] [place] [address] [place] [phone] Aileen Cisneros CRNP [address] [place] [address] Scheduled Procedures Name Priority Associated Diagnoses Date/Ti me COLONOSCOPY FLEXIBLE PROXIMAL DIAGNOSTIC Recall History of colon polyps Health Maintenance Due Date Last Done Comments HIV Screening 1975 Hepatitis C Screening 1978 Depression Screening 08/24/2021 08/24/2020 COVID-19 Vaccine (2022- season) 2023 08/20/2022, 08/09/2021, 01/18/2021, Additional history exists Influenza Vaccine (FLU shot) (#1) 2023 07/18/2022, [...] this topic Zoster Vaccines Completed 03/21/2023, 12/29/2022 GARDASIL-HPV IMMUNIZATION SERIES Aged Out No longer eligible based on patient's age to complete this topic Hepatitis B Aged Out No longer eligi ble based on patient's age to complete this topic MENINGOCOCCAL (MENACTRA/MENVEO) Aged Out No longer eligible based on patient's age to complete this topic documented as of this encounter Medical Devices Implanted Type Area Volunteer Fire Fighter Device Identifier Shelf Expiration Date Model / Serial / Lot Implant Sut Anch 5.5x19.1mm - [id number] Implanted:Qty: 1 on 09/08/2020 by Gabriella Campuzano, at OR [facility] Left: Shoulder [employer] 01/13/2021 [id number] / / [id number] documented as of this encounter Procedures Procedure Name Priority Date/Time Associated Diagnosis Comments INR FINGERSTICK, POINT OF CARE STAT 09/14/2023 8:08 AM EST S/P aortic valve replacement Anticoagulation management encounter 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 documented in this encounter Results * INR FINGERSTICK, POINT OF CARE (09/14/2023 8:08 AM EST) Fingerstick INR 3.3 INR 8:13 AM EST [facility] 56-02 Blood 09/14/2023 8:08 AM EST 09/14/2023 8:13 AM EST Narrative [facility] 56-02 - 09/14/2023 8:13 AM EST Therapeutic ranges for non-operative patients: Prophylaxsis/treatment of DVT: (Range:2.0-3.0) Treatment of pulmonary embolism:(Range:2.0-3.0) Prevention of systemic embolism from: -tissue heart valves -acute myocardial infarction -valvular heart disease -atrial fibrillation (Range: 2.0-3.0) Mechanical prosthetic valves: (Range: 2.5-3.5) Dante Lopez V, [facility] LAB POINT OF CARE TE ST DOCKED DEVICE UNSOLICITED RESULTS [facility] 56-02 [address] [place] [address] documented in this encounter Visit Diagnoses Diagnosis S/P aortic valve replacement- Primary Heart valve replaced by other means Anticoagulation management encounter Encounter for therapeutic drug monitoring 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 Care Teams Intensive Care Medicine Specialist Relationship Specialty Start Date End Date Madeline Messina DO [address] [facility] [address] PCP - General Family Medicine 11/22/18 documented as of this encounter"
--- OUTSIDE RECORDS SUMMARY | 2023-09-22 11:22 | External Medical Summary | Summary of Care ---
Author Name Unknown Organization [facility] Address [address] [place] [facility] [place] [address] Phone [phone] Care Team Providers Care Filter Operator Name Role Phone Madeline Messina DO Primary Care Provider Reason for Visit * Reason Comments Dosage Adjustment In Person (Anticoag Cl inic) Encounter Details Date Type Department Care Team Description 07/27/2023 Anticoagulation Pharmacy, [facility] 200 [facility] [place] [address] Pharmacist1, [facility] 200 [facility] [place] [address] S/P aortic valve replacement*; Anticoagulation management encounter; watermelon inspector current use of anticoagulant therapy Allergies Active Allergy Reactions Severity Noted Date Comments Morphine And Related Rash 12/29/2008 Codeine documented as of this encounter (statuses as of 07/27/2023) Medications Medication Sig Dispensed Refills Start Date [...] as of this encounter (statuses as of 07/27/2023) Active Problems Problem Noted Date Morbid obesity due to excess calories Body mass index (BMI) of 45.0 to 49.9 in adult 07/17/2017 Overview: Per Obesity protocol #1 HTN, goal below 140/90 03/28/2016 Overview: Per HTN Protocol Dyslipidemia, goal LDL below 100 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 11/24/2009 Overview: ICD-10 update of inactive term Sleep apnea, obstructive 09/25/2009 Overview: CPAP 14 cwp 2008 PSG AHP S/P aortic valve replacement 12/29/2008 documented as of this encounter (statuses as of 07/27/2023) Resolved Problems Problem Noted Date Resolved Date [...] as of this encounter (statuses as of 07/27/2023) Immunizations Name Administration Dates Next Due COVID-19 [...] as of this encounter Progress Notes * Dante Lopez V [facility] - 07/27/2023 8:15 AM EDT Medication Therapy Disease Management - Anticoagulation Paz Steffensen 1960 Patient Findings Negatives: Signs/symptoms of thrombosis, Signs/symptoms of bleeding, Change in health, Change in alcohol use, Change in activity, Upcoming invasive procedure, Missed doses, Extra doses, Change in medications, Change in diet/appetite, Bruising INR Result As of 07/27/2023 INR goal: 2.5-3.5 INR used for dosin.7 (07/27/2023) Warfarin Plan As of 07/27/2023 Full warfarin instructions: 0 mg every Tue; 2.5 mg all other days No change documented: Dante Connolly RPh Next INR check: 09/14/2023 Repeat PT/INR in 7 week(s) Weekly dose: not changed Dante Lopez RPh, CACP, CDE Clinical Pharmacist Medication Therapy Management [facility] 07/27/2023 8:19 AM documented in this encounter Plan of Treatment Upcoming Encounters Date Type Specialty Care Team Description 09/14/2023 Anticoagulation Pharmacy Pharmacist1, [facility] [address] [facility] [place] [address] 11/24/2023 Imaging Radiology 01/01/2024 Office Visit Family Medicine Madeline Messina DO 200 [facility] [place] [address] 01/30/2024 Office Visit Sleep Disorders Aileen Cisneros CRNP [address] [place] [address] Scheduled Procedures Name Priority Associated Diagnoses Date/Ti me COLONOSCOPY FLEXIBLE PROXIMAL DIAGNOSTIC Recall History of colon polyps Health Maintenance Due Date Last Done Comments HIV Screening 1975 Hepatitis C Screening 1978 Depression Screening 08/24/2021 08/24/2020 COVID-19 Vaccine ( season) 2023 08/20/2022, 08/09/2021, 01/18/2021, Additional history [...] this encounter Medical Devices Implanted Type Area Piecer Up Device Identifier Shelf Expiration Date Model / Serial / Lot Implant Sut Anch 5.5x19.1mm - [id number] Implanted:Qty: 1 on 09/08/2020 by Gabriella Campuzano, at OR [facility] Left: Shoulder [employer] 01/13/2021 [id number] / / [id number] documented as of this encounter Procedures Procedure Name Priority Date/Time Associated Diagnosis Comments INR FINGERSTICK, POINT OF CARE STAT 07/27/2023 8:18 AM EDT S/P aortic valve replacement 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 documented in this encounter Results * INR FINGERSTICK, POINT OF CARE (07/27/2023 8:18 AM EDT) Fingerstick INR 2.7 INR 8:19 AM EDT [facility] 56-02 Blood 07/27/2023 8:18 AM EDT 07/27/2023 8:19 AM EDT Narrative [facility] 56-02 - 07/27/2023 8:19 AM EDT Therapeutic ranges for non-operative patients: Prophylaxsis/treatment of DVT: (Range:2.0-3.0) Treatment of pulmonary embolism:(Range:2.0-3.0) Prevention of systemic embolism from: -tissue heart valves -acute myocardial infarction -valvular heart disease -atrial fibrillation (Range: 2.0-3.0) Mechanical prosthetic valves: (Range: 2.5-3.5) Dante Lopez V, [facility] LAB POINT OF CARE TE ST DOCKED DEVICE UNSOLICITED RESULTS [facility] [id number] documented in this encounter Visit Diagnoses Diagnosis S/P aortic valve replacement- Primary Heart valve replaced by other means Anticoagulation management encounter 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 Care Teams Filter Operator Relationship Specialty Start Date End Date Madeline Messina DO [facility] [id number] PCP - General Family Medicine 11/22/18 documented as of this encounter
--- OUTSIDE RECORDS SUMMARY | 2023-09-22 11:22 | External Medical Summary | Summary of Care ---
Author Name Unknown Organization [facility] Address [address] [facility] [place] [address] Phone [phone] Care Team Providers Care Clean Up Helper Banquet Name Role Phone Ryanbrendon Madeline Jules DO Primary Care Provider Reason for Visit * Reason Comments Dosage Adjustment In Person (Anticoag Cl inic) Encounter Details Date Type Department Care Team Description 05/04/2023 Anticoagulation Pharmacy, [facility] 200 [facility] [place] [address] Pharmacist1, [facility] 200 [facility] [place] [address] S/P aortic valve replacement*; Anticoagulation management encounter; equipment operator intermodal yard current use of anticoagulant therapy Allergies Active Allergy Reactions Severity Noted Date Comments Morphine And Related Rash 12/29/2008 Codeine documented as of this encounter (statuses as of 05/04/2023) Medications Medication Sig Dispensed Refills Start Date [...] as of this encounter (statuses as of 05/04/2023) Active Problems Problem Noted Date Morbid obesity due to excess calories Body mass index (BMI) of 45.0 to 49.9 in adult 07/17/2017 Overview: Per Obesity protocol #1 HTN, goal below 140/90 03/28/2016 Overview: Per HTN Protocol Dyslipidemia, goal LDL below 100 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 11/24/2009 Overview: ICD-10 update of inactive term Sleep apnea, obstructive 09/25/2009 Overview: CPAP 14 cwp 2008 PSG AHP S/P aortic valve replacement 12/29/2008 documented as of this encounter (statuses as of 05/04/2023) Resolved Problems Problem Noted Date Resolved Date [...] as of this encounter (statuses as of 05/04/2023) Immunizations Name Administration Dates Next Due COVID-19 [...] 07/19/2021 Seasonal Influenza, Quadriva lent, No Preserve, 6 Mons & Above, IM 07/20/2020,07/27/2019,08/21/2017 Seasonal Influenza, Quadriva lent, No Preserve, IM [...] this encounter Progress Notes * Dante Lopez V, [facility] - 05/04/2023 8:10 AM EDT Images from the original note were not included. Medication Therapy Disease Management - Anticoagulation Paz [place] 1960 Patient Findings Negatives: Signs/symptoms of thrombosis, Signs/symptoms of bleeding, Change in health, Change in alcohol use, Change in activity, Upcoming invasive procedure, Missed doses, Extra doses, Change in medications, Change in diet/appetite, Bruising INR Result As of 05/04/2023 INR goal: 2.5-3.5 INR used for dosin.3 (05/04/2023) Warfarin Plan As of 05/04/2023 Full warfarin instructions: 0 mg every Mon; 2.5 mg all other days (will take every Monday now) Next INR check: 06/15/2023 Repeat PT/INR in 6 week(s) Weekly dose: increased Dante Lopez RPh, CACP, CDE Clinical Pharmacist Medication Therapy Management Clinic 05/04/2023 8:16 AM documented in this encounter Plan of Treatment Upcoming Encounters Date Type Specialty Care Team Description 06/15/2023 Anticoagulation Pharmacy Pharmacist1, [facility] [address] [facility] [place] [address] 11/24/2023 Imaging Radiology 01/01/2024 Office Visit Family Medicine Madeline Messina DO [address] [place] [address] 01/30/2024 Office Visit Sleep Disorders Aileen Cisneros CRNP [address] [place] [address] Scheduled Procedures Name Priority Associated Diagnoses Date/Ti [...] this encounter Medical Devices Implanted Type Area Apprentice Pattern Maker Device Identifier Shelf Expiration Date Model / Serial / Lot Implant Sut Anch 5.5x19.1mm - [id number] Implanted:Qty: 1 on 09/08/2020 by Gabriella Campuzano, at OR [facility] Left: Shoulder [employer] 01/13/2021 [id number] / / [id number] documented as of this encounter Procedures Procedure Name Priority Date/Time Associated Diagnosis Comments INR FINGERSTICK, POINT OF CARE STAT 05/04/2023 8:13 AM EDT S/P aortic valve replacement Anticoagulation 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 documented in this encounter Results * INR FINGERSTICK, POINT OF CARE (05/04/2023 8:13 AM EDT) Fingerstick INR 2.3 INR 8:17 AM EDT [facility] 56-02 Blood 05/04/2023 8:13 AM EDT 05/04/2023 8:16 AM EDT Narrative [facility] 56-02 - 05/04/2023 8:17 AM EDT Therapeutic ranges for non-operative patients: Prophylaxsis/treatment of DVT: (Range:2.0-3.0) Treatment of pulmonary embolism:(Range:2.0-3.0) Prevention of systemic embolism from: -tissue heart valves -acute myocardial infarction -valvular heart disease -atrial fibrillation (Range: 2.0-3.0) Mechanical prosthetic valves: (Range: 2.5-3.5) Dante John V, [facility] LAB POINT OF CARE TE ST DOCKED DEVICE UNSOLICITED RESULTS [facility] 56- 200 [facility] [place] [address] documented in this encounter Visit Diagnoses Diagnosis S/P aortic valve replacement- Primary Heart valve replaced by other means Anticoagulation management encounter Encounter for therapeutic drug monitoring equipment operator intermodal yard current use of anticoagulant therapy documented in this encounter Advance Directives Latest Code Status on File Code Status Date Activated Date Inactivated Comments Full Code 09/08/2020 2:46 PM 09/08/2020 8:44 PM Thi s order reflects the patients wishes and were consensually agreed upon. Care Teams Clean Up Helper Banquet Relationship Specialty Start Date End Date Madeline Messina DO 200 [facility] [place] [address] PCP - General Family Medicine 11/22/18 documented as of this encounter
--- OUTSIDE RECORDS SUMMARY | 2023-09-22 11:22 | External Medical Summary ---
Author Name Unknown Address Unknown Organization K09:[facility] [place] [address] Laboratory Report Ordering Provider Test Date Status NORBERT DONAHUE V 06/15/2023 08:14:03 Final Therapeutic ranges for non-o perative patients:
Prophylaxsis/treatment of DVT: (Range:2.0-3.0)
Treatment of pulmonary embolism:(Range:2.0-3.0)
Prevention of systemic embolism from:
-tissue heart valves
-acute myocardial infarction
-valvular heart disease
-atrial fibrillation
(Range: 2.0-3.0)
Mechanical prosthetic valves: (Range: 2.5-3.5) Observation Date Value Abnormality Reference (Units ) Status INR in Capillary blood by Coagulation assay 06/15/2023 08:14:03 2.8 (INR) Final Performing Location [facility] [id number]
--- OUTSIDE RECORDS SUMMARY | 2023-09-22 11:22 | External Medical Summary | Summary of Care ---
Author Name Unknown Organization [facility] Address [address] [facility] [address] Phone [phone] Care Team Providers Care Taxicab Dispatcher Name Role Phone Siddharth Madeline Jules DO Primary Care Provider Encounter Details Date Type Department Care Team Description 04/20/2023 Telephone Sleep Disorders Ctr [facility] [address] [place] [phone] Aileen Cisneros CRNP [address] 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 11/24/2009 Overview: ICD-10 update of inactive term Sleep apnea, obstructive 09/25/2009 Overview: CPAP 14 cwp 2008 PSG AHP S/P aortic valve replacement 12/29/2008 documented as of this encounter (statuses as of 04/20/2023) Resolved Problems Problem Noted Date Resolved Date [...] as of this encounter (statuses as of 04/20/2023) Immunizations Name Administration Dates Next Due COVID-19 [...] on file documented as of this encounter Miscellaneous Notes * Telephone Encounter - Blair Scott - 04/20/2023 10:06 AM EDT Orders in 04/20 documented in this encounter Plan of Treatment Upcoming Encounters Date Type Specialty Care Team Description 05/04/2023 Anticoagulation Pharmacy Pharmacist1, [facility] [address] [facility] [address] 11/24/2023 Imaging Radiology 01/01/2024 Office Visit Family Medicine Madeline Messina, [address] [facility] [place] [address] 01/30/2024 Office Visit Sleep Disorders Aileen Cisneros CRNP [address] [place] [address] Scheduled Procedures Name Priority Associated Diagnoses Date/Ti [...] this encounter Medical Devices Implanted Type Area Director Of Distance Learning Device Identifier Shelf Expiration Date Model / Serial / Lot Implant Sut Anch 5.5x19.1mm - [id number] Implanted:Qty: 1 on 09/08/2020 by Gabriella Campuzano DO at OR [facility] Left: Shoulder [employer] 01/13/2021 [id number] / / [id number] documented as of this encounter Advance Directives Latest Code Status on File Code Status Date Activated Date Inactivated Comments Full Code 09/08/2020 2:46 PM 09/08/2020 8:44 PM Thi s order reflects the patients wishes and were consensually agreed upon. Care Teams Taxicab Dispatcher Relationship Specialty Start Date End Date Madeline Messina DO [address] [facility] [place] [address] PCP - General Family Medicine 11/22/18 documented as of this encounter
--- OUTSIDE RECORDS SUMMARY | 2023-09-22 11:22 | External Medical Summary | Summary of Care ---
Author Name Unknown Organization [facility] Address [address] [facility] [address] Phone [phone] Care Team Providers Care Child Therapist Name Role Phone Madeline Messina DO Primary Care Provider Reason for Visit * Reason Onset Date Comments Health Maintenance 04/05/2023 Encounter Details Date Type Department Care Team Description 04/05/2023 Telephone Family Practice [facility] [place] [address] [facility] [place] [address] Madeline Messina DO [address] [facility] [place] [address] Health Maintenance Allergies Active Allergy Reactions Severity Noted Date Comments Morphine And Related Rash 12/29/2008 Codeine documented as of this encounter (statuses as of 04/05/2023) Medications Medication Sig Dispensed Refills Start Date [...] as of this encounter (statuses as of 04/05/2023) Active Problems Problem Noted Date Morbid obesity due to excess calories Body mass index (BMI) of 45.0 to 49.9 in adult 07/17/2017 Overview: Per Obesity protocol #1 HTN, goal below 140/90 03/28/2016 Overview: Per HTN Protocol Dyslipidemia, goal LDL below 100 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 11/24/2009 Overview: ICD-10 update of inactive term Sleep apnea, obstructive 09/25/2009 Overview: CPAP 14 cwp 2008 PSG AHP S/P aortic valve replacement 12/29/2008 documented as of this encounter (statuses as of 04/05/2023) Resolved Problems Problem Noted Date Resolved Date [...] as of this encounter (statuses as of 04/05/2023) Immunizations Name Administration Dates Next Due COVID-19 [...] encounter Miscellaneous Notes * Telephone Encounter - Chantal Marie LPN - 04/05/2023 3:05 PM EDT Care Gaps Comprehensive Care Outreach Last Office/Telemedicine Visit: 12/29/2022 (in office), Visit date not found (telemedicine) Next Office Visit: 01/01/2024 Hemoglobin AIC Results: No results found for: HEMOGLOBIN A1C Reviewed Health Maintenance below: Health Maintenance Topic Date Due HIV Screening Never done Hepatitis C Screening Never done Depression Screening, Annual for Pts 12 and Over 08/24/2021 COLONOSCOPY-EVERY 5 YRS AGES 18-100 10/02/2023 Colon not due until dec Care Gap Outreach Action Taken: Outreach not indicated documented in this encounter Plan of Treatment Upcoming Encounters Date Type Specialty Care Team Description 05/04/2023 Anticoagulation Pharmacy Pharmacist1, [facility] [address] [place] [address] 11/24/2023 Imaging Radiology 01/01/2024 Office Visit Family Medicine Madeline Messina, DO [address] [place] [address] 01/30/2024 Office Visit Sleep Disorders Aileen Cisneros CRNP [address] [place] [address] Scheduled Procedures Name Priority Associated Diagnoses Date/Ti me COLONOSCOPY FLEXIBLE PROXIMAL DIAGNOSTIC Recall History of colon polyps Health Maintenance Due Date Last Done Comments HIV Screening 1975 Hepatitis C Screening 1978 Depression Screening, Annual for Pts 12 and Over 08/24/2021 08/24/2020 COLONOSCOPY-EVERY 5 YRS AGES 18-100 10/02/2023 10/02/2018, [...] on patient's age to complete this topic Influenza Vaccine (FLU shot) Completed 12/2021, 07/19/2021, 07/20/2020, Additional history exists COVID-19 Vaccine Completed 08/20/2022, , 01/18/2021, Additional [...] this encounter Medical Devices Implanted Type Area Fleet Administrative Assistant Device Identifier Shelf Expiration Date Model / Serial / Lot Implant Sut Anch 5.5x19.1mm - [id number] Implanted:Qty: 1 on 09/08/2020 by Gabriella Campuzano DO at OR [facility] Left: Shoulder [employer] 01/13/2021 [id number] / / [id number] documented as of this encounter Advance Directives Latest Code Status on File Code Status Date Activated Date Inactivated Comments Full Code 09/08/2020 2:46 PM 09/08/2020 8:44 PM Thi s order reflects the patients wishes and were consensually agreed upon. Care Teams Child Therapist Relationship Specialty Start Date End Date Madeline Messina DO [address] [facility] [place] [address] PCP - General Family Medicine 11/22/18 documented as of this encounter
--- OUTSIDE RECORDS SUMMARY | 2023-09-22 11:22 | External Medical Summary | Summary of Care ---
Author Name Unknown Organization [facility] Address [address] [facility] [address] Phone [phone] Care Team Providers Care Tool Room Gear Machine Operator Name Role Phone Ryanbrendon Madeline Jules DO Primary Care Provider Reason for Visit * Reason Comments Dosage Adjustment In Person (Anticoag Cl inic) Encounter Details Date Type Department Care Team Description 06/15/2023 Anticoagulation Pharmacy, [facility] [address] [facility] [place] [address] Pharmacist1, [facility] [address] [facility] [place] [address] S/P aortic valve replacement*; Anticoagulation management encounter; rodent exterminator current use of anticoagulant therapy Allergies Active Allergy Reactions Severity Noted Date Comments Morphine And Related Rash 12/29/2008 Codeine documented as of this encounter (statuses as of 06/15/2023) Medications Medication Sig Dispensed Refills Start Date [...] as of this encounter (statuses as of 06/15/2023) Active Problems Problem Noted Date Morbid obesity due to excess calories Body mass index (BMI) of 45.0 to 49.9 in adult 07/17/2017 Overview: Per Obesity protocol #1 HTN, goal below 140/90 03/28/2016 Overview: Per HTN Protocol Dyslipidemia, goal LDL below 100 010 senior living current use of anticoagulant t herapy 11/24/2009 Overview: ICD-10 update of inactive term Sleep apnea, obstructive 09/25/2009 Overview: CPAP 14 cwp 2008 PSG AHP S/P aortic valve replacement 12/29/2008 documented as of this encounter (statuses as of 06/15/2023) Resolved Problems Problem Noted Date Resolved Date [...] as of this encounter (statuses as of 06/15/2023) Immunizations Name Administration Dates Next Due COVID-19 [...] encounter Progress Notes * Dante Lopez V [facility] - 06/15/2023 8:11 AM EDT Medication Therapy Disease Management - Anticoagulation [place] 1960 Patient Findings Positives: Missed doses (Miseed one dose last week.) Negatives: Signs/symptoms of thrombosis, Signs/symptoms of bleeding, Change in health, Change in alcohol use, Change in activity, Upcoming invasive procedure, Extra doses, Change in medications, Change in diet/appetite, Bruising INR Result As of 06/15/2023 INR goal: 2.5-3.5 INR used for dosin.8 (06/15/2023) Warfarin Plan As of 06/15/2023 Full warfarin instructions: 0 mg every Tue; 2.5 mg all other days No change documented: Dante Connolly RPh Next INR check: 07/27/2023 Repeat PT/INR in 6 week(s) Weekly dose: not changed Dante Lopez RPh, CACP, CDE Clinical Pharmacist Medication Therapy Management [facility] 06/15/2023 8:17 AM documented in this encounter Plan of Treatment Upcoming Encounters Date Type Specialty Care Team Description 07/27/2023 Anticoagulation Pharmacy Pharmacist1, [facility] [address] [facility] [place] [address] 11/24/2023 Imaging Radiology 01/01/2024 Office Visit Family Medicine Madeline Messina DO [address] [facility] [place] [address] 01/30/2024 Office Visit Sleep Disorders Aileen Cisneros CRNP [address] [place] [address] Scheduled Procedures Name Priority Associated Diagnoses Date/Ti [...] this encounter Medical Devices Implanted Type Area Agency Appointments Supervisor Device Identifier Shelf Expiration Date Model / Serial / Lot Implant Sut Anch 5.5x19.1mm - [id number] Implanted:Qty: 1 on 09/08/2020 by Gabriella Campuzano, at OR [facility] Left: Shoulder [employer] 01/13/2021 [id number] / / [id number] documented as of this encounter Procedures Procedure Name Priority Date/Time Associated Diagnosis Comments INR FINGERSTICK, POINT OF CARE STAT 06/15/2023 8:14 AM EDT S/P aortic valve replacement Anticoagulation management encounter senior living current use of anticoagulant therapy documented in this encounter Results * INR FINGERSTICK, POINT OF CARE (06/15/2023 8:14 AM EDT) Fingerstick INR 2.8 INR 8:16 AM EDT [facility] 56-02 Blood 06/15/2023 8:14 AM EDT 06/15/2023 8:16 AM EDT Narrative [facility] 56-02 - 06/15/2023 8:16 AM EDT Therapeutic ranges for non-operative patients: Prophylaxsis/treatment of DVT: (Range:2.0-3.0) Treatment of pulmonary embolism:(Range:2.0-3.0) Prevention of systemic embolism from: -tissue heart valves -acute myocardial infarction -valvular heart disease -atrial fibrillation (Range: 2.0-3.0) Mechanical prosthetic valves: (Range: 2.5-3.5) Dante John V, [facility] POINT OF CARE TE ST DOCKED DEVICE UNSOLICITED RESULTS [facility] [address] [facility] [address] documented in this encounter Visit Diagnoses Diagnosis S/P aortic valve replacement- Primary Heart valve replaced by other means Anticoagulation management encounter Encounter for therapeutic drug monitoring senior living current use of anticoagulant therapy documented in this encounter Advance Directives Latest Code Status on File Code Status Date Activated Date Inactivated Comments Full Code 09/08/2020 2:46 PM 09/08/2020 8:44 PM Thi s order reflects the patients wishes and were consensually agreed upon. Care Teams Tool Room Gear Machine Operator Relationship Specialty Start Date End Date [facility] [address] [facility] [address] PCP - General Family Medicine 11/22/18 documented as of this encounter
[2023-09-22] MEDS ORDERED: FUROSEMIDE 40 MG/4 ML VIAL IV ONE ×2 (11:56→14:24)
[2023-09-22] MEDS ORDERED: ACETAMINOPHEN 325 MG TAB PO PRN (12:28)
[2023-09-22] MEDS ORDERED: MAGNESIUM HYDROXIDE SUSP 30 ML UDC PO PRN (12:28)
[2023-09-22] MEDS ORDERED: ALUMINUM/MAGNESIUM SUSP 30 ML UDC PO PRN (12:28)
[2023-09-22] MEDS ORDERED: ONDANSETRON INJ 2 MG/ML 2 ML VIAL IV PRN (12:28)
[2023-09-22] MEDS ORDERED: POLYETHYLENE (MIRALAX) 17 GM PACK PO PRN (12:28)
--- NOTE | 2023-09-22 12:35 | History & Physical Report ---
Date of Service September 22, 2023 Assessment & Plan (1) Tachycardia: (2) (HFpEF) heart failure with preserved ejection fraction: (3) Cough: (4) SOB (shortness of breath): (5) Hypokalemia: (6) History of transcatheter aortic valve replacement (TAVR): Plan Ms. Cleveland is a 63-year-old female with a past medical history of AVR (1987 on Coumadin), HTN, dyslipidemia, MADAI ( uses CPAP), and enlarged aorta that presented to the ED after being at an outpatient cardiology appointment and was noted to have a heart rate in the 160s and in a flutter. She reports that she has had an upper respiratory illness over the past 2 months and has been taking Robitussin almost every day. Follows with [facility]. Never has had AF/Flutter. Normally takes Amlodipine, but reports feeling heart palpitations and SOB for three weeks. She reports her fitbit was indicating arrhythmia, but she took it off. In the ED she was given a total of 10 mg Metoprolol IV; with some response, now in the 130s. Cardiology evaluated patient int he ED and was given 40 mg IV Lasix with a repeat ECHO order. Will reevaluate for possible cardioversion. She denies any DVT or PE history. INRs have been therapeutic ; today INR 4.0 Last INR check was therapeutic. Most recent ECHO 12/2021 aortic valve prosthesis gradients within normal limits; LV wall mildly concentric. EF 55-59%, Grade I DDx. Denies tobacco, alcohol and re creational drug use. WELLS score 1. No leukocytosis, mild hypokalemia 3.4, Phos critically low less than 1.0. BNP 549, troponin 10.1. ECHO results indicated a reduced EF 20%, after discussion with cardiology suspect patient in decompensated heart failure that likely has been occurring for the last 2 months. Cardiology will initiate IV amiodarone and determine additional beta- irma use based on her response. received Lasix 40 mg IV. HFrEF: Tachycardia: Acute Admit to PCU Suspect provoked by persistent respiratory symptoms/OTC Robitussin use [facility] CXR: Cardiomegaly with pulmonary vascular congestion. WELLS score: 1 received Metoprolol 5 mg IV x2 in ED ECG: Atrial Flutter Rate 155 bpm. QTC: 487 No acute ischemic changes identified; do not necessarily suspect ACS Candelario insertion due to tachycardia/SOB/Lasix Admin; patient receptive Troponin 10.1 BNP: 549; trend in AM Denies PE/DVT history Most recent ECHO: 12/2021 aortic valve prosthesis gradients within normal limits; LV wall mildly concentric. EF 55-59%, Grade I DDx. ECHO results indicated a reduced EF 20%; Cards starting IV amiodarone and will determine additional beta-irma use based on her response Continue to rate control Cardiology Consult; aware of patient and gave Lasix 40 mg IV Hypophosphatemia: acute serum Phos+ < 1.0 replace with 30 mmol KPhos over 4 hours;recheck two hours after completion. Cough: SOB: acute Symptoms persistent x 2 months Taking Robitussin nearly daily; likely contributing to tachycardia Check Sputum culture Check Procalcitonin Hypokalemia: Acute Unlikely related to tachycardia/ectopy K+ 3.4; received 10mEq in ED; trend in AM HTN: Chronic stable Takes Amlodipine; continue H/O AVR: Chronic Stable AVR performed 1987 On Coumadin; reports therapeutic INRs INR today 4.0; trend in AM HLD: Chronic stable Takes Simvastatin; continue Disposition: PCP: Dr. Messina Code Status: Full Code VTE Prophylaxis: On Coumadin I spent a total of 87 minutes coordinating, documenting, and providing care for this patient excluding time spent in the performance of separately billed services. All of the aforementioned completed while collaborating with the assigned attending physician for a full treatment plan. Please see their adde ndum for further details. History of Present Illness Chief Complaint: SOB/tachycardia/Atrial Flutter Primary Care Provider: Madeline Messina DO Ms. Cleveland is a 63-year-old female with a past medical history of AVR (1987 on Coumadin), HTN, dyslipidemia, MADAI ( uses CPAP), and enlarged aorta that presented to the ED after being at an outpatient cardiology appointment and was noted to have a heart rate in the 160s and in a flutter. She reports that she has had an upper respiratory illness over the past 2 months and has been taking Robitussin almost every day. Follows with [facility]. Never has had AF/Flutter. Normally takes Amlodipine, but reports feeling heart palpitations and SOB for three weeks. She reports her fitbit was indicating arrhythmia, but she took it off. In the ED she was given a total of 10 mg Metoprolol IV; with some response, now in the 130s. Cardiology evaluated patient int he ED and was given 40 mg IV Lasix with a repeat ECHO order. Will reevaluate for possible cardioversion. She denies any DVT or PE history. INRs have been therapeutic ; today INR 4.0 Last INR check was therapeutic. Most recent ECHO 12/2021 aortic valve prosthesis gradients within normal limits; LV wall mildly concentric. EF 55-59%, Grade I DDx. Denies tobacco, alcohol and recreational drug use. WELLS score 1. No leukocytosis, mild hypokalemia 3.4, Phos critically low less than 1.0. BNP 5 49, troponin 10.1. Pt denies PEREA, dizziness, fever/chills, chest pain, palpitations, orthopnea, abdominal pain or tenderness, visual or auditory changes, hematochezia, N/V/D, hemoptysis, appetite changes, recent falls or trauma. ECHO results indicated a reduced EF 20%, after discussion with cardiology suspect patient in decompensated heart failure that likely has been occurring for the last 2 months. Cardiology will initiate IV amiodarone and determine additional beta-irma use based on her response. received Lasix 40 mg IV. Pt will be admitted for further evaluation and management. Please see A/P for further details. Allergies Allergy/AdvReac Type Severity Reaction Status Date / Time codeine Allergy RASH Verified 10/02/18 10:19 Home Medications Medication Instructions Recorded Confirmed Type amlodipine 5 mg tablet 2.5 mg PO QAM 10/01/18 09/22/23 History amoxicillin 500 mg capsule 2,000 mg PO UD PRN prior to dental 10/01/18 09/22/23 History procedures loratadine 10 mg tablet 10 mg PO DAILY PRN Allergy Symptoms 10/01/18 09/22/23 H istory simvastatin 20 mg tablet 20 mg PO QAM 10/01/18 09/22/23 History warfarin 5 mg tablet 2.5 mg PO QPM 10/01/18 09/22/23 History PreserVision AREDS 1 tab PO AMPM 09/22/23 09/22/23 History mdvosutmumyn-vtuivuus-nypzvf tablet 1 tab PO QAM 09/22/23 09/22/23 History Past Med/Surg History Medical History History of transcatheter aortic valve replacement (TAVR) Hypokalemia SOB (shortness of breath) Cough (HFpEF) heart failure with preserved ejection fraction Tachycardia On anticoagulant therapy Hypertension Hyperlipidemia Irregular heart beat Sleep apnea cpap Surgical History History of hysterectomy with unilateral oophorectomy History of open reduction and internal fixation (ORIF) procedure right tib/fib, ankle fx--hardware in place in ankle History of colonoscopy History of esophagogastroduodenoscopy (EGD) History of oral surgery History of tooth extraction wisdom teeth History of cardiac cath 1987 no stent H/O aortic valve replacement 1987 @ [facility]---follows with Dr. Sahu Social History Smoking Status: Never smoker Second Hand Exposure: No; Do You Dip or Chew Tobacco: No; Hx Alcohol Use: Yes Alcohol type: wine and hard liquor Hx Substance Use: No Preferred Language: Croatian Communication Ability: Effective Resident In Diagnostic Radiology Required: No Beliefs That Will Affect Care: None Current Living Situation: Spouse Feels Safe at Home: Yes Assistive Devices: CPAP and Glasses Review of Systems Review of Systems: Neuro: (-) Falls, trauma, slurred speech HEENT: (-) PEREA, dizziness, dysphagia, visual or auditory changes CV: (-) CP, palpitations, swelling Resp: (-) SOB GI: (-) appetite changes, N/V/D, bowel changes : (-) urinary changes Skin: (-) rashes Psych: (-) anxiety, depression Physical Exam Physical Exam: Neuro: AAOx4, PERRLA, no aphagia, memory changes, CNII-XII grossly intact HEENT: head normocephalic, moist mucus membranes CV: S1/S2, (-) M/G/R, (-) edema, cap refill < 3 seconds Resp: Lungs CTA in all garcia. On RA GI: Abdomen S/NT/ND, Ax4 bowel sounds, (-) CVA tenderness Musculoskeletal: 5/5 B/L UE strength, 5/5 B/L LE strength. No gait disturbance Skin: (-) rashes , (-) erythema. Psych: euthymic mood Results & Data Results & Data Vital Signs (Past 12 Hours) Vital Signs Temp Pulse Pulse Resp BP BP Pulse Ox 09/22/23 11:39 132 H 122/95 09/22/23 10:19 130 H 118/90 09/22/23 10:14 132 H 140/113 H 09/22/23 10:08 132 H 16 142/119 H 94 09/22/23 09:54 133 H 18 152/116 H 93 09/22/23 09:49 138 H 152/116 H 09/22/23 09:32 125 H 09/22/23 09:29 96 09/22/23 09:29 165 H 09/22/23 09:29 96 09/22/23 09:08 36.6 C 154 H 16 122/79 95 O2 Del Method 09/22/23 11:39 09/22/23 10:19 09/22/23 10:14 09/22/23 10:08 Room Air 09/22/23 09:54 Room Air 09/22/23 09:49 09/22/23 09:32 09/22/23 09:29 Room Air 09/22/23 09:29 09/22/23 09:29 Room Air 09/22/23 09:08 Laboratory Results Short CBC 09/22/23 Range/Units 09:20 WBC 9.43 (4.8-10.8) K/ul Hgb 13.8 (12.0-16.0) g/dl Hct 43.5 (37.0-47.0) % Plt Count 346 (130-400) K/uL BMP 09/22/23 09:20 Sodium 143 Potassium 3.4 L Chloride 109 H Carbon Dioxide 24 BUN 15 Creatinine 0.83 Glucose 110 H Calcium 9.2 Liver Function 09/22/23 Range/Units 09:20 Total Bilirubin 0.6 (0.2-1.0) mg/dl AST 22 (13-39) U/L ALT 24 (7-52) U/L Alkaline Phosphatase 103 (34-104) U/L Albumin 4.1 (3.4-5.0) gm/dl Diagnostic Findings Chest X-Ray 09/22/23 09:13 XR chest 1V portable HISTORY: 62 years-old Female Chest pain, nonspecific COMPARISON: None TECHNIQUE: AP view of the chest FINDINGS: Cardiac silhouette is enlarged. Median sternotomy. Pulmonary vascular congestion with interstitial coarsening. No pneumothorax. Mild bibasilar densities. Asymmetric right hilar prominence. Degenerative changes of the shoulders and spine. IMPRESSION: 1. Cardiomegaly with pulmonary vascular congestion. 2. Asymmetric right hilar prominence is noted without comparison available. Differential considerations include adenopathy, pulmonary lesion versus summation density from pulmonary vasculature. Correlate with prior imaging. ACT 112: Negative or not required by law. The above report was generated using voice recognition software. It may contain grammatical, syntax or spelling errors. Electronically signed by: Emil Balderas M.D. 09/22/2023 9:43 AM Code Status & VTE Plan Code Status Full Code in the event of cardiac or respiratory arrest VTE Prophylaxis Plan VTE Prophylaxis will be ordered: Yes Supervising Physician Co-Signing Physician Notes Pt was seen and examined. Agreed with Susanne CHRISTIANSEN exam, assessment and plan. 63-year-old female with a PMH of AVR (1987 on Coumadin), HTN, dyslipidemia, MADAI ( uses CPAP), and enlarged aorta that presented to the ED after seeing outpatient cardiology today for routine visit when she was found to be in atrial flutter. Pt said that she has been having symptoms of upper respiratory illness over the last 2 months. She has been taking Robitussin daily. She said that her fitbit was indicating arrhythmia in the last 1 month. She removed it because she thought the fitbit needed to update. She was sent to the ER from outpatient cardiology office. IN the ED HR was in the 160 and EKG showed atrial fibrillation with RVR. She received metoprolol 5mg x2 in the ER. Cardiology evaluated at bedside and stat echo ordered. Received IV lasix 40mg x1. Echo reviewed with patient showed severe global hypokinesis of the left ventricle with ejection fraction 20 to 25%. Labs show magnesium 1 and K3.4. Electrolyte replaced. Started on IV amiodarone drip by cardiology. On Coumadin for aortic valve replacement back in 1987, will monitor PT/INR. patient will be monitor closely in telemetry. MD Rachid
--- NOTE | 2023-09-22 12:40 | Electrocardiogram Report ---
Test Reason : Blood Pressure : / mmHG Vent. Rate : 165 BPM Atrial Rate : 271 BPM P-R Int : 000 ms QRS Dur : 096 ms QT Int : 294 ms P-R-T Axes : 258 -41 245 degrees QTc Int : 487 ms Atrial fibrillation with rapid ventricular response with premature ventricular or aberrantly conducte d complexes Left axis deviation Septal infarct , age undetermined Abnormal ECG No previous ECGs available Confirmed by Miky Wall ([id number]) on 09/22/2023 12:39:42 PM Referred By: REFERRED SELF Confirmed By:Miky Wall
[2023-09-22] MEDS ORDERED: POTASSIUM PHOS 3 MMOL/1 ML INFUSION IV STA (13:46)
[2023-09-22] MEDS ORDERED: POTASSIUM PHOSPHATE 30 MMOL in SODIUM CHLORIDE 0.9% 500 ML IV ONE (14:00)
--- NOTE | 2023-09-22 14:09 | Cardiology Consultation ---
Date of Consultation September 22, 2023 Assessment & Plan (1) Atrial flutter with rapid ventricular response: (2) Acute exacerbation of CHF (congestive heart failure): (3) Tachycardia induced cardiomyopathy: (4) S/P AVR (aortic valve replacement): Plan 62-year-old female with longstanding history of valvular heart disease status post aortic valve replacement 1987 with ball cage and mechanical prosthesis. Previously with preserved LV systolic function. Patient presents now with at least 1 to 2 months history of increasing dyspnea Found to be in atrial fibrillation/flutter on examination earlier today. Current exam reflects volume overload congestive heart failure newly observed decline in overall ejection fraction. Suspect tachycardia mediated cardiomyopathy 1. Atrial fibrillation/flutter with rapid ventricular response: Given reduced ejection fraction and congestive heart failure will initiate amiodarone with initial IV bolus and infusion, add beta-irma as necessary for rate control following initial bolus 2. Decompensated systolic heart failure: Initial dose of IV furosemide administered. Will need ongoing diuresis. Will discontinue amlodipine and add CARMEN inhibitor as clinical course progresses 3. Diffuse cardiomyopathy possibly tachycardia mediated: Plan as above History of Present Illness Reason for Consultation: Atrial fibrillation flutter with rapid ventricular response, congestive heart failure Requesting Physician: Dr. Solomon History of Present Illness Patient is a 62-year-old female with chronic cardiac concerns 1. Aortic valve replacement with cage-ball valve, 1987 2. Hypertension 3. Enlarged aortic root/ascending aorta, 4.1 cm/4.75 cm respectively (12/2021) 4. Dyslipidemia 5. MADAI, on CPAP 6. Morbid obesity The patient presents now having presented for routine clinical evaluation and cardiology but noted increasing dyspnea for at least 1 to 2 months duration. Notes Fitbit was aware of irregular and rapid heart rates and discontinued wearing Has noted slight increase in weight though no acute increase. Has some increase in pedal edema though feels this is chronic. Notes no syncope or near syncope. Has been appropriately anticoagulated for mechanical valve prosthesis. No bleeding issues Did have upper respiratory and sinus infection complaints following a cruise in early July No other fevers chills or unexplained infection EKG done in office and confirmed here demonstrates atrial fibrillation flutter with rapid ventricular response Allergies Allergy/AdvReac Type Severity Reaction Status Date / Time codeine Allergy RASH Verified 10/02/18 10:19 Home Medications Medication Instructions Recorded Confirmed Type amlodipine 5 mg tablet 2.5 mg PO QAM 10/01/18 09/22/23 History amoxicillin 500 mg capsule 2,000 mg PO UD PRN prior to dental 10/01/18 09/22/23 History procedures loratadine 10 mg tablet 10 mg PO DAILY PRN Allergy Symptoms 10/01/18 09/22/23 History simvastatin 20 mg tablet 20 mg PO QAM 10/01/18 09/22/23 History warfarin 5 mg tablet 2.5 mg PO QPM 10/01/18 09/22/23 History PreserVision AREDS 1 tab PO AMPM 09/22/23 09/22/23 History icxfjeoxgbez-kmuxfpbn-dpswxx tablet 1 tab PO QAM 09/22/23 09/22/23 History Patient History Medical History History of transcatheter aortic valve replacement (TAVR) Hypokalemia SOB (shortness of breath) Cough (HFpEF) heart failure with preserved ejection fraction Tachycardia On anticoagulant therapy Hypertension Hyperlipidemia Irregular heart beat Sleep apnea cpap Surgical History History of hysterectomy with unilateral oophorectomy History of open reduction and internal fixation (ORIF) procedure right tib/fib, ankle fx--hardware in place in ankle History of colonoscopy History of esophagogastroduodenoscopy (EGD) History of oral surgery History of tooth extraction wisdom teeth History of cardiac cath 1987 no stent H/O aortic valve replacement 1987 @ [facility]---follows with Dr. Sahu Social History Smoking Status: Never smoker Second Hand Exposure: No; Do You Dip or Chew Tobacco: No; Hx Alcohol Use: Yes Alcohol type: wine and hard liquor Hx Substance Use: No Preferred Language: Czech Communication Ability: Effective Foreman Or Supervisor And Operator Required: No Beliefs That Will Affect Care: None Current Living Situation: Spouse Feels Safe at Home: Yes Assistive Devices: CPAP and Glasses Review of Systems Review of Systems: All systems reviewed & are unremarkable except as noted in HPI & below Physical Exam Constitutional: + ill appearing and + morbidly obese Eyes: PERRL, conjunctivae normal, anicteric sclerae ENMT: external ear and nose normal, oropharynx normal Neck: trachea midline, no thyromegaly Respiratory: Auscultation: + diminished lung sounds and + rales Cardiovascular: Rate/Rhythm: regular rate and + tachycardic Heart Sounds: + murmur Vessels: + JVD Extremities: + edema Audible mechanical sounds present Gastrointestinal (Abdomen): normal bowel sounds, soft, nontender, no hepatosplenomegaly Musculoskeletal: no cyanosis or clubbing, extremities motor strength 5/5 Results & Data Vital Signs (Past 12 Hours) Vital Signs Temp Pulse Pulse Resp BP BP Pulse Ox 09/22/23 13:57 134 H 22 94 09/22/23 13:32 133 H 09/22/23 13:30 134 H 22 119/94 94 09/22/23 12:00 132 H 24 116/93 94 09/22/23 11:39 132 H 122/95 09/22/23 10:19 130 H 118/90 09/22/23 10:14 132 H 140/113 H 09/22/23 10:08 132 H 16 142/119 H 94 09/22/23 09:54 133 H 18 152/116 H 93 09/22/23 09:49 138 H 152/116 H 09/22/23 09:32 125 H 09/22/23 09:29 96 09/22/23 09:29 165 H 09/22/23 09:29 96 09/22/23 09:08 36.6 C 154 H 16 122/79 95 O2 Del Method O2 Flow Rate 09/22/23 13:57 Nasal Cannula 2 09/22/23 13:32 09/22/23 13:30 Nasal Cannula 2 09/22/23 12:00 Nasal Cannula 2 09/22/23 11:39 09/22/23 10:19 09/22/23 10:14 09/22/23 10:08 Room Air 09/22/23 09:54 Room Air 09/22/23 09:49 09/22/23 09:32 09/22/23 09:29 Room Air 09/22/23 09:29 09/22/23 09:29 Room Air 09/22/23 09:08 Laboratory Results Laboratory Results - last 24 hr 09/22/23 09/22/23 09:15 09:20 WBC 9.43 RBC 4.77 Hgb 13.8 Hct 43.5 MCV 91.2 MCH 28.9 MCHC 31.7 L RDW Std Deviation 52.2 H RDW Coeff of Genet 15.7 H Plt Count 346 MPV 10.9 Immature Gran % (Auto) 0.5 Neut % (Auto) 77.4 Lymph % (Auto) 13.4 [place] % (Auto) 6.5 Eos % (Auto) 1.9 Baso % (Auto) 0.3 Neut # (Auto) 7.30 H Lymph # (Auto) 1.26 [place] # (Auto) 0.61 H Eos # (Auto) 0.18 Baso # (Auto) 0.03 Immature Gran # (Auto) 0.05 PT 40.5 H INR 4.0 H Sodium 143 Potassium 3.4 L Chloride 109 H Carbon Dioxide 24 Anion Gap 10 BUN 15 Creatinine 0.83 Est Cr Clr Drug Dosing 91.3 Est GFR ( Amer) 87.6 Est GFR (Non-Af Amer) 75.6 BUN/Creatinine Ratio 18.1 Glucose 110 H Calcium 9.2 Phosphorus < 1.0 L* Cancelled Magnesium 2.0 Total Bilirubin 0.6 AST 22 ALT 24 Alkaline Phosphatase 103 Troponin I High Sens 10.1 B-Natriuretic Peptide 549 H Total Protein 7.0 Albumin 4.1 Globulin 2.9 Albumin/Globulin Ratio 1.4 Lipase 21 Procalcitonin Cancelled Diagnostic Findings Echocardiogram 12/21/2021 Overall images are of fair technical quality The left ventricular cavity size is normal. The LV wall thickness is mildly increased (concentric). The left ventricular wall motion is normal. The qualitative LV ejection fraction is 55-59% (normal). There is an aortic valve ball in cage mechanical prosthesis present. Peak aortic valve velocity 2.5 m/s The aortic valve prosthesis systolic gradients are normal for this type prosthesis. Aortic valve prosthesis stenosis is absent. The left ventricular diastolic function is mildly abnormal (grade I). The aortic root and proximal ascending aorta are moderately enlarged. (4.1/4.5 cm) Compared to prior study of December 12, 2019, there is no significant change. Echocardiogram 09/22/2023, preliminary review Diffuse LV dysfunction EF 20-25%
[2023-09-22] MEDS ORDERED: AMIODARONE / D5W 150 MG/100 ML BAG IV ONE (14:30)
[2023-09-22] MEDS ORDERED: 0.2 MICRON FILTER SET 1 EACH IV ONE (14:30)
[2023-09-22] MEDS ORDERED: AMIODARONE / D5W 360 MG/200 ML BAG IV SCH (14:30)
[2023-09-22] MEDS: CEROVITE ADV FORMULA TAB PO SCH (15:29)
[2023-09-22 16:38] LABS: Adenovirus PCR Not Detected (NotDetected); Bordetella parapertussis PCR Not Detected (NotDetected); Bordetella pertussis PCR Not Detected (NotDetected); Chlamydia pneumoniae PCR Not Detected (NotDetected); Coronavirus 229E PCR Not Detected (NotDetected); Coronavirus CoV-2 (COVID19)PCR Not Detected (NotDetected); Coronavirus HKU1 PCR Not Detected (NotDetected); Coronavirus NL63 PCR Not Detected (NotDetected); Coronavirus OC43PCR Not Detected (NotDetected); Human Metapneumovirus PCR Not Detected (NotDetected); Influenza A PCR Not Detected (NotDetected); Influenza B PCR Not Detected (NotDetected); Mycoplasma pneumoniae PCR Not Detected (NotDetected); Parainfluenza Virus 1 PCR Not Detected (NotDetected); Parainfluenza Virus 2 PCR Not Detected (NotDetected); Parainfluenza Virus 3 PCR Not Detected (NotDetected); Parainfluenza Virus 4 PCR Not Detected (NotDetected); Respiratory Syncytial VirusPCR Not Detected (NotDetected); Rhinovirus/Enterovirus PCR Not Detected (NotDetected)
[2023-09-22] MEDS: AMIODARONE / D5W 360 MG/200 ML BAG IV SCH (21:28)
[2023-09-22] MEDS: METOPROLOL SUCC 25MG EXT REL TAB PO SCH (22:37)
--- NOTE | 2023-09-23 07:29 | Hospitalist Progress Note ---
Date of Service September 23, 2023 Assessment & Plan (1) Tachycardia: (2) (HFpEF) heart failure with preserved ejection fraction: (3) Cough: (4) SOB (shortness of breath): (5) Hypokalemia: (6) History of transcatheter aortic valve replacement (TAVR): Plan Ms. Cleveland is a 63-year-old female with a past medical history of AVR (1987 on Coumadin), HTN, dyslipidemia, MADAI ( uses CPAP), and enlarged aorta that presented to the ED after being at an outpatient cardiology appointment and was noted to have a heart rate in the 160s and in a flutter. She reports that she has had an upper respiratory illness over the past 2 months and has been taking Robitussin almost every day. Follows with [facility]. Never has had AF/Flutter. Normally takes Amlodipine, but reports feeling heart palpitations and SOB for three weeks. She reports her fitbit was indicating arrhythmia, but she took it off. In the ED she was given a total of 10 mg Metoprolol IV; with some response, now in the 130s. Cardiology evaluated patient int he ED and was given 40 mg IV Lasix. 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 Patient currently on IV amiodarone and metoprolol, still sustaining heart rates in 120- 130s over the evening of 09/22 into 09/23. Cardiology planning for cardioversion in morning. #Acute heart failure with reduced ejection fraction #New onset Atrial fibrillation/flutter with RVR Recent ECHO 2021: EF 55-59%, GIDD; ECHO 09/22/2023 with EF 20-25% CXR: Cardiomegaly with pulmonary vascular congestion., severe MVR, aortic root dilatation, global hypokinesis of LV received Metoprolol 5 mg IV x2, now on IV amiodarone + BB ECG: Atrial Flutter Rate 155 bpm. QTC: 487 09/22 Continue suki for strict IOs - GDMT: *BetaB: Started on Metoprolol Succinate 25mg BID *RAAS: will add as tolerated - s/p 40mg lasix in the ED - Will start aggressive diuresis with 40mg lasix IV daily for goal net negative - Strict I/Os, daily weights -Cardiology on consult -Continue amio and metop -Plan for cardioversion in am 10, NPO midnight -Simvastatin to atorvastatin 2/2 interaction with amiodarone -Warfain for AC iso mechanical valve: INR 4.2 this am, hold PM dose #Hypokalemia *improved #Hypophosphatemia:*improved Replace lytes prn, K >4, M >2, P >3 #Cough -likely related to congestive heart failure, reports URI like symptoms but afebrile Biofire negative -Symptom control, manage HFrEF above #HTN: Chronic stable Discontinue amlodipine, hold ACEi until tachycardia resolved given relative hypotension Will introduce ACEi as tolerated #Aortic Valve Replacement, mechanical Chronic Stable AVR performed 1987 On Coumadin; INR goal 2.5-3.5 #Aortic root dilatation -The aortic root and proximal ascending aorta are moderately enlarged. (4.1/4.5 cm) -Stable per echo 12/2021 #HLD: Chronic stable Transition to #MADAI -Continue CPAP Disposition: PCP: Dr. Messina Code Status: Full Code VTE Prophylaxis: On Coumadin Admission and Anticipated Discharge Date Admission Date: September 22, 2023 Subjective Reports feeling better since admission, endorses orthopnea, but denies chest pain or acute symptoms Review of Systems Review of Systems: All systems reviewed & are unremarkable except as noted in Subjective Physical Exam Constitutional: WD/WN, vitals as above Respiratory: decreased, but no crackles/wheezing appreciated Cardiovascular: +mumur from valve, irregular rhythm tach ycardic, 2+ pitting edema Results & Data Results & Data Vital Signs (Past 12 Hours) Vital Signs Temp Pulse Pulse Resp BP Pulse Ox O2 Del Method 09/23/23 03:22 36.9 C 128 H 20 127/84 91 CPAP 09/22/23 23:20 Nasal Cannula, CPAP 09/22/23 22:35 129 H 09/22/23 22:05 36.6 C 127 H 20 126/88 96 Nasal Cannula 09/22/23 21:30 128 H 22 128/94 95 Nasal Cannula 09/22/23 21:00 129 H 22 108/86 95 Nasal Cannula 09/22/23 20:00 129 H 24 89/64 L 95 Nasal Cannula 09/22/23 19:15 128 H 22 109/83 97 Nasal Cannula O2 Flow Rate 09/23/23 03:22 12/08/23 23:20 2 09/22/23 22:35 09/22/23 22:05 2 09/22/23 21:30 2 09/22/23 21:00 2 09/22/23 20:00 2 09/22/23 19:15 2 Laboratory Results Short CBC 09/23/23 Range/Units 06:40 WBC 10.27 (4.8-10.8) K/ul Hgb 13.2 (12.0-16.0) g/dl Hct 41.1 (37.0-47.0) % Plt Count 363 (130-400) K/uL BMP 09/22/23 09/23/23 16:53 06:59 Sodium 141 Potassium 4.0 Chloride 108 H Carbon Dioxide 22 BUN 14 Creatinine 0.79 Glucose 113 H Calcium 8.6 9.1 Liver Function 09/23/23 Range/Units 06:59 Total Bilirubin 0.6 (0.2-1.0) mg/dl AST 17 (13-39) U/L ALT 21 (7-52) U/L Alkaline Phosphatase 92 (34-104) U/L Albumin 4.0 (3.4-5.0) gm/dl Medications Administered Home Medications Medication Instructions Recorded Confirmed Last Taken amlodipine 5 mg tablet 2.5 mg PO QAM 10/01/18 09/22/23 09/30/18 amoxicillin 500 mg capsule 2,000 mg PO UD PRN prior to dental 10/01/18 09/22/23 Unknown procedures loratadine 10 mg tablet 10 mg PO DAILY PRN Allergy Symptoms 10/01/18 09/22/23 09/29/18 simvastatin 20 mg tablet 20 mg PO QAM 10/01/18 09/22/23 10/01/18 22:00 warfarin 5 mg tablet 2.5 mg PO QPM 10/01/18 09/22/23 09/26/18 22:00 PreserVision AREDS 1 tab PO AMPM 09/22/23 09/22/23 Unknown ierflmwvvmry-hqyamyry-gixyds tablet 1 tab PO QAM 09/22/23 09/22/23 Unknown Active Medications Generic Name Dose Route Start Last Admin Trade Name Freq PRN Reason Stop Dose Admin Amiodarone HCl/Dextrose 360 mg in 200 mls @ 33.333 mls/hr 09/22/23 14:30 09/23/23 09:24 Nexterone / D5w IV 01/07/24 14:29 0.5 mg/min .Q6H ELISEO 16.7 mls/hr Administration 1 MG/MIN Metoprolol Succinate 25 mg 09/22/23 21:00 09/23/23 09:30 Metoprolol Succ 25mg Ext Rel Tab PO 10/22/23 20:59 25 mg BID ELISEO Administration Multivitamins/Minerals 1 tab 09/22/23 14:00 09/23/23 09:30 Cerovite Adv Formula Tab PO 10/22/23 13:59 1 tab DAILY ELISEO Administration
[2023-09-23 07:37] LABS: Hematocrit (blood only) 41.1 % (37.0-47.0); Hemoglobin 13.2 g/dl (12.0-16.0); Mean Corpuscular Hgb Conc 32.1 g/dL (32.0-36.0); Mean Corpuscular Volume 90.3 fL (80.0-100.0); Mean Platelet Volume 11.1 fL (9.4-12.4); Platelet Count 363 K/uL (130-400); RDW Standard Deviation 52.7 fL (36.4-46.3); Red Blood Count 4.55 M/uL (4.20-5.40); White Blood Count 10.27 K/ul (4.8-10.8)
[2023-09-23 07:47] LABS: Albumin Globulin Ratio 1.5 (0.9-2); BUN Creatinine Ratio 17.7 (10-20); Bilirubin,Total 0.6 mg/dl (0.2-1.0); Calcium 9.1 mg/dl (8.6-10.3); Creatinine Clr Calc Pharmacy 95.3 ml/min; Est GFR (Non-African American) 80.2 ml/min; Globulin 2.7 gm/dl (2.5-4.0); Magnesium 1.9 mg/dl (1.7-2.4); Phosphorus 3.4 mg/dl (2.5-4.9); Total Protein 6.7 gm/dl (6.0-8.3)
[2023-09-23] MEDS ORDERED: FUROSEMIDE 40 MG/4 ML VIAL IV ONE (08:07)
[2023-09-23 08:16] LABS: INR 4.2 (0.9-1.1); Prothrombin Time 41.9 Seconds (9.0-12.0)
[2023-09-23] MEDS ORDERED: SIMVASTATIN 20 MG TAB PO SCH (09:00)
[2023-09-23] MEDS: AMIODARONE / D5W 360 MG/200 ML BAG IV SCH ×3 (09:24→23:14)
[2023-09-23] MEDS: METOPROLOL SUCC 25MG EXT REL TAB PO SCH ×2 (09:30→20:19)
[2023-09-23] MEDS: CEROVITE ADV FORMULA TAB PO SCH (09:30)
--- NOTE | 2023-09-23 11:27 | Cardiology Progress Note ---
Date of Service September 23, 2023 Assessment & Plan (1) Atrial flutter with rapid ventricular response: (2) Acute HFrEF (heart failure with reduced ejection fraction): (3) Tachycardia induced cardiomyopathy: (4) S/P AVR (aortic valve replacement): Plan 62-year-old female with longstanding history of valvular heart disease status post aortic valve replacement 1987 with ball cage and mechanical prosthesis. Previously with preserved LV systolic function. Patient presents now with at least 1 to 2 months history of increasing dyspnea Found to be in atrial fibrillation/flutter with rapid ventricular rate. Presentation with superimposed volume overload and newly observed decline in overall ejection fraction. Suspect tachycardia mediated cardiomyopathy -Goal INR 2.5-3.5 with INR of 4.2 today. Hold today's coumadin dose. -Received dose of IV furosemide 40 mg yesterday and another dose today. Renal function and electrolytes stable today. -Increase IV amiodarone infusion to 1 mg/hr along with 200 mg PO BID with meals. -LFTs normal on admission. Check TSH for baseline tomorrow. -Continue metoprolol succinate 25 mg BID, new medication this admission. -OK for diet today. NPO after midnight for planned cardioversion in first floor ICU am of 09/24/23 , 730 am , case discussed with Dr Stark of anesthesia by phone. -future considerations include the addition of an ACEI / ARB or Entreso , and SGLT2 inhibitor, however systolic BP on the lower side and will not start yet. Admission and Anticipated Discharge Date Admission Date: September 22, 2023 Subjective Patient seen in cardiology follow-up. She notes not getting a lot of sleep last night, but feels comfortable at present. She describes previous orthopnea but that is improving. Telemetry reveals ongoing atrial fibrillation with rate of around 130 bpm all night last night and already today. Review of Systems Cardiovascular: Additional Comments: Recent dyspnea on exertion. No complaints at rest in bed this morning. Physical Exam Constitutional: + ill appearing and + morbidly obese Eyes: PERRL, conjunctivae normal, anicteric sclerae ENMT: external ear and nose normal, oropharynx normal Neck: trachea midline, no thyromegaly Respiratory: Auscultation: + diminished lung sounds (Mildly decreased breath sounds at the bases); no rales Cardiovascular: Rate/Rhythm: regular rate and + tachycardic Heart Sounds: + murmur (Perkins prosthetic heart sounds noted) Vessels: + JVD Extremities: + edema Gastrointestinal (Abdomen): normal bowel sounds, soft, nontender, no hepatosplenomegaly Musculoskeletal: no cyanosis or clubbing, extremities motor strength 5/5 Results & Data Vital Signs (Past 12 Hours) Vital Signs Temp Pulse Pulse Resp BP Pulse Ox O2 Del Method 09/23/23 08:22 36.8 C 129 H 20 101/72 92 Room Air 09/23/23 07:19 128 H 09/23/23 03:22 36.9 C 128 H 20 127/84 91 CPAP Laboratory Results Cardiac Enzymes 09/22/23 09/23/23 Range/Units 09:20 06:59 AST 17 (13-39) U/L B-Natriuretic Peptide 549 H (0-100) pg/ml Coagulation 09/22/23 09/23/23 Range/Units 09:20 06:40 PT 41.9 H (9.0-12.0) Seconds B-Natriuretic Peptide 549 H (0-100) pg/ml CBC 09/23/23 Range/Units 06:40 WBC 10.27 (4.8-10.8) K/ul RBC 4.55 (4.20-5.40) M/uL Hgb 13.2 (12.0-16.0) g/dl Hct 41.1 (37.0-47.0) % Plt Count 363 (130-400) K/uL Comprehensive Metabolic Panel 09/22/23 09/23/23 Range/Units 16:53 06:59 Sodium 141 (136-145) mmol/L Potassium 4.0 (3.5-5.1) mmol/L Chloride 108 H (98-107) mmol/L Carbon Dioxide 22 (21-32) mmol/L BUN 14 (6-23) mg/dl Creatinine 0.79 (0.6-1.2) mg/dl Glucose 113 H (70-99(Fasting)) mg/dl Calcium 8.6 9.1 (8.6-10.3) mg/dl AST 17 (13-39) U/L ALT 21 (7-52) U/L Alkaline Phosphatase 92 (34-104) U/L Total Protein 6.7 (6.0-8.3) gm/dl Albumin 4.0 (3.4-5.0) gm/dl Intake and Output 09/22/23 09/23/23 09/23/23 22:59 06:59 14:59 Intake Total 93 / 2029 199.287 / 199.287 Output Total 1200 / 1300 100 / 1300 Balance -270 / 730 -100 / 730 199.287 / 199.287 Intake: IV 810 / 1910 199.287 / 199.287 Amiodarone / D5w 150 mg In 100 100 / 100 ml @ 600 mls/hr IV ONE ONE Rx#: [id number] Amiodarone / D5w 360 mg In 200 200 / 200 199.287 / 199.287 ml @ 0.5 MG/MIN 16.667 mls/hr IV .Q12H [facility] Rx#:[id number] Potassium Phosphate 30 mmol In 510 / 510 Sodium Chloride 0.9% 500 ml @ 88 mls/hr IV ONE ONE Rx#: [id number] Oral 120 / 120 Output: Urine Amount (Catheter) 1200 / 1299 100 / 1300 Candelario/Indwelling 1200 / 1300 100 / 1300 Other: Other Intake Source sips Weight 128.3 kg 122.4 kg Weight Measurement Method Built in [facility] in [facility]
--- NOTE | 2023-09-23 14:09 | Anesthesiology Consultation ---
Date of Service September 23, 2023 Assessment & Plan Chart Review Chart Review: Acceptable Risk for Surgery and Patient NOT seen in Pre Admission Testing Consults Requested none ASA ASA4 History Height/Weight Height: 5 ft 4 in Weight: 122.4 kg Allergies Allergy/AdvReac Type Severity Reaction Status Date / Time codeine Allergy RASH Verified 10/02/18 10:19 Medications Home Medications Medication Instructions Recorded Confirmed Last Taken amlodipine 5 mg tablet 2.5 mg PO QAM 10/01/18 09/22/23 09/30/18 amoxicillin 500 mg capsule 2,000 mg PO UD PRN prior to dental 10/01/18 09/22/23 Unknown procedures loratadine 10 mg tablet 10 mg PO DAILY PRN Allergy Symptoms 10/01/18 09/22/23 09/29/18 simvastatin 20 mg tablet 20 mg PO QAM 10/01/18 09/22/23 10/01/18 22:00 warfarin 5 mg tablet 2.5 mg PO QPM 10/01/18 09/22/23 09/26/18 22:00 PreserVision AREDS 1 tab PO AMPM 09/22/23 09/22/23 Unknown cfmkpfxkjtdl-weggqgej-ydpmsj tablet 1 tab PO QAM 09/22/23 09/22/23 Unknown Active Medications Generic Name Dose Route Start Last Admin Trade Name Freq PRN Reason Stop Dose Admin Amiodarone HCl/Dextrose 360 mg in 200 mls @ 33.333 mls/hr 09/22/23 14:30 09/23/23 09:24 Nexterone / D5w IV 10/22/23 14:29 0.5 mg/min .Q6H ELISEO 16.7 mls/hr Administration 1 MG/MIN Metoprolol Succinate 25 mg 09/22/23 21:00 09/23/23 09:30 Metoprolol Succ 25mg Ext Rel Tab PO 10/22/23 20:59 25 mg BID ELIESO Administration Multivitamins/Minerals 1 tab 09/22/23 14:00 09/23/23 09:30 Cerovite Adv Formula Tab PO 10/22/23 13:59 1 tab DAILY ELISEO Administration Past Medical History Medical History History of transcatheter aortic valve replacement (TAVR) Hypokalemia SOB (shortness of breath) Cough (HFpEF) heart failure with preserved ejection fraction Tachycardia On anticoagulant therapy Hypertension Hyperlipidemia Irregular heart beat Sleep apnea cpap morbid obesity Exercise / Class Metabolic Activity III < 4 Walking/Shop/Light housework Past Surgical History Surgical History History of hysterectomy with unilateral oophorectomy History of open reduction and internal fixation (ORIF) procedure right tib/fib, ankle fx--hardware in place in ankle History of colonoscopy History of esophagogastroduodenoscopy (EGD) History of oral surgery History of tooth extraction wisdom teeth History of cardiac cath 1987 no stent H/O aortic valve replacement 1987 @ [facility]---follows with Dr. Sahu Past Anesthesia History No Hx of Anesthesia Complications and No Family Hx of Anesthesia Complications History of PONV No Hx of PONV and No Hx of Motion Sickness Social History Smoking Status: Never smoker Do You Dip or Chew Tobacco: No Hx Alcohol Use: Yes Alcohol type: other alcohol intake frequency: holidays/special occasions only Alcohol Intake Frequency Comment: mixed drinks occasionally Hx Substance Use: No substance use type: does not use Physical Exam Vital Signs Last Vital Signs Temp 36.6 C 09/23/23 11:43 Pulse 130 H 09/23/23 11:43 Resp 18 09/23/23 11:43 BP 103/71 09/23/23 11:43 Pulse Ox 94 09/23/23 11:43 O2 Del Method Nasal Cannula 09/23/23 11:43 O2 Flow Rate 2 09/23/23 11:43 Testing Laboratory Results 09/23/23 06:40 09/23/23 06:59 PT 41.9 Seconds (9.0-12.0) H 09/23/23 06:40 INR 4.2 (0.9-1.1) H 09/23/23 06:40 Electrocardiogram Date: 09/22/23 Findings: + AFIB @ (@ 165 w/RVR;LAD;?septal infarct,age?) Chest X-Ray Date: 09/22/23 Findings: + cardiomegaly and + pulmonary vascular congestion Echocardiogram Date: 09/22/23 EF: 20% LV Function: dysfunctional RWMA: + hypokinetic (severe global HK) Other Findings: + atrial enlargement (LA-moderately dilated) and + LVH (mild) Valvular Disease: + MR (severe MR) mechanical AV mild TR LV-moderately dilated Moderate Ao root dilation
[2023-09-23] MEDS ORDERED: WARFARIN SOD 2.5 MG TAB PO SCH (16:00)
[2023-09-23] MEDS: AMIODARONE 200 MG TAB PO SCH (16:18)
[2023-09-23 20:33] LABS: Appearance Urine Cloudy (Clear); Bacteria Urine Automated Negative (Negative); Bilirubin Urine Negative (Negative); Blood Urine 3+ (Negative); Color Urine Dark Yellow; Epithelial Cell Urine Auto >30 /lpf (0-5); Glucose Urine UA Negative (Negative); Ketones Urine Trace (Negative); Leukocyte Esterase Urine Trace (Negative); Nitrite Urine Negative (Negative); Protein Urine 2+ (Negative); RBC Urine Automated >30 /hpf (0-4); Specific Gravity Urine 1.031 (1.000-1.030); Urobilinogen Urine Negative (Negative)
[2023-09-23] MEDS ORDERED: MAGNESIUM SULFATE / D5W 1 GM/100 ML BAG IV ONE (21:23)
[2023-09-23] MEDS ORDERED: FUROSEMIDE INJ 20 MG/2 ML VIAL IV ONE ×2 (21:44→23:10)
[2023-09-23 22:35] LABS: BUN Creatinine Ratio 21.4 (10-20); Calcium 8.5 mg/dl (8.6-10.3); Creatinine Clr Calc Pharmacy 53.8 ml/min; Est GFR (African American) 46.6 ml/min; Est GFR (Non-African American) 40.2 ml/min; Magnesium 2.1 mg/dl (1.7-2.4); Phosphorus 5.2 mg/dl (2.5-4.9)
[2023-09-23 22:39] LABS: Troponin I High Sensitivity 11.9 pg/ml (0-14)
[2023-09-23] MEDS ORDERED: CEFEPIME 2,000 MG in SYRINGE 0 ML IV SCH (23:00)
[2023-09-23] MEDS ORDERED: DOXYCYCLINE HYCLATE 100 MG in DEXTROSE 5% MINI-B 100 ML IV SCH (23:00)
[2023-09-23] MEDS ORDERED: DIGOXIN 125 MCG in SYRINGE 9.5 ML IV STA (23:13)
[2023-09-24] MEDS ORDERED: DIGOXIN 125 MCG in SYRINGE 9.5 ML IV STA (00:17)
[2023-09-24 00:21] LABS: Basophils # (auto) 0.03 K/uL (0.00-0.20); Basophils % (auto) 0.2 %; Eosinophils # (auto) 0.02 K/uL (0.00-0.50); Eosinophils % (auto) 0.1 %; Hematocrit (blood only) 42.5 % (37.0-47.0); Hemoglobin 13.7 g/dl (12.0-16.0); Immature Granulocytes # (auto) 0.09 K/uL (0.01-0.20); Immature Granulocytes % (auto) 0.6 %; Lymphocytes # (auto) 0.88 K/uL (1.20-3.40); Mean Corpuscular Hemoglobin 29.3 pg (25.0-34.0); Mean Corpuscular Hgb Conc 32.2 g/dL (32.0-36.0); Mean Corpuscular Volume 90.8 fL (80.0-100.0); Mean Platelet Volume 11.1 fL (9.4-12.4); Monocytes # (auto) 0.62 K/uL (0.11-0.59); Monocytes % (auto) 4.2 %; Neutrophils # (auto) 13.08 K/uL (1.40-6.50); Neutrophils % (auto) 88.9 %; Platelet Count 345 K/uL (130-400); RDW Coefficient of Variation 16.1 % (11.5-14.5); RDW Standard Deviation 53.3 fL (36.4-46.3); Red Blood Count 4.68 M/uL (4.20-5.40); White Blood Count 14.72 K/ul (4.8-10.8)
[2023-09-24] MEDS: AMIODARONE / D5W 360 MG/200 ML BAG IV SCH ×4 (04:54→22:26)
[2023-09-24 06:52] LABS: Hematocrit (blood only) 40.2 % (37.0-47.0); Hemoglobin 13.3 g/dl (12.0-16.0); Mean Corpuscular Hemoglobin 29.2 pg (25.0-34.0); Mean Corpuscular Hgb Conc 33.1 g/dL (32.0-36.0); Mean Corpuscular Volume 88.4 fL (80.0-100.0); Mean Platelet Volume 11.3 fL (9.4-12.4); Platelet Count 313 K/uL (130-400); RDW Coefficient of Variation 16.1 % (11.5-14.5); RDW Standard Deviation 52.5 fL (36.4-46.3); Red Blood Count 4.55 M/uL (4.20-5.40); White Blood Count 9.38 K/ul (4.8-10.8)
[2023-09-24 07:05] LABS: BUN Creatinine Ratio 22.9 (10-20); Calcium 8.6 mg/dl (8.6-10.3); Creatinine Clr Calc Pharmacy 69.1 ml/min; Est GFR (Non-African American) 54.4 ml/min; Magnesium 2.1 mg/dl (1.7-2.4)
--- NOTE | 2023-09-24 07:06 | XRay Report ---
XR chest 1V portable HISTORY: 62 years-old Female sob acute shortness of breath COMPARISON: 09/22/2023 TECHNIQUE: AP view of the chest FINDINGS: Cardiac silhouette is enlarged. Median sternotomy. Pulmonary vascular congestion with interstitial co arsening worsened. No pneumothorax or large pleural effusion. Mild bibasilar densities. Asymmetric ri ght hilar prominence. Degenerative changes of the shoulders and spine. IMPRESSION: 1. Cardiomegaly with interval development of mild pulmonary edema. 2. Asymmetric right hilar prominence/right perihilar opacity redemonstrated. ACT 112: Negative or not required by law. The above report was generated using voice recognition software. It may contain grammatical, syntax o r spelling errors. Electronically signed by: Emil Balderas M.D. 09/24/2023 7:04 AM
[2023-09-24 07:19] LABS: Thyroid Stimulating Hormone 4.491 uIu/ml (0.300-4.500)
[2023-09-24 07:29] LABS: INR 3.2 (0.9-1.1); Prothrombin Time 32.1 Seconds (9.0-12.0)
--- NOTE | 2023-09-24 07:32 | History & Physical Bridge Note ---
Date of Service September 24, 2023 History & Physical Bridge Note I have examined the patient, reviewed the History & Physical and in the interval since the performance of the History & Physical I have noted the following changes of clinical significance: Patient developed worsening shortness of breath and transient hypotension last eveningHer systolic blood pressures in the 90s. Ultimately she received a 250 mL fluid bolus. Chest x-ray however revealed pulmonary edema and she subsequently received a dose of IV furosemide along with BiPAP support with interval improvement in her blood pressure, most recent measurement 123/91. Currently remains in atrial fibrillation with rate of 123 bpm.INR this morning is 3.2. Patient is comfortable on a low-dose of supplementary oxygen via oxime mask at present and is able to lie supine. Informed consent for cardioversion previously obtained. Patient elects to proceed.
[2023-09-24] MEDS ORDERED: ePHEDrine sulfate 50 MG/ML AMP IV PRN (07:33)
[2023-09-24] MEDS ORDERED: ATROPINE SULFATE 0.1 MG/ML 10ML SYR IV PRN (07:33)
--- NOTE | 2023-09-24 07:35 | Hospitalist Progress Note ---
Date of Service September 24, 2023 Assessment & Plan (1) Tachycardia: (2) (HFpEF) heart failure with preserved ejection fraction: (3) Cough: (4) SOB (shortness of breath): (5) Hypokalemia: (6) History of transcatheter aortic valve replacement (TAVR): Plan Ms. Cleveland is a 63-year-old female with a past medical history of AVR (1987 on Coumadin), HTN, dyslipidemia, MADAI ( uses CPAP), and enlarged aorta that presented to the ED after being at an outpatient cardiology appointment and was noted to have a heart rate in the 160s and in a flutter. She reports that she has had an upper respiratory illness over the past 2 months and has been taking Robitussin almost every day. Follows with [facility]. Never has had AF/Flutter. Normally takes Amlodipine, but reports feeling heart palpitations and SOB for three weeks. She reports her fitbit was indicating arrhythmia, but she took it off. In the ED she was given a total of 10 mg Metoprolol IV; with some response, now in the 130s. Cardiology evaluated patient int he ED and was given 40 mg IV Lasix. 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 Patient currently on IV amiodarone and metoprolol, still sustaining heart rates in 120- 130s over the evening of 09/22 into 09/23. Course complicated by hypotension requiring bolus, with subsequent pulm congestion. Patient responded well to diuersis and BIPAP. On the morning of 09/24, patient underwent Cardioversion with subsequent return to sinus. Patient reports feeling notably improved since CV. #Hypotension -CTM off of diuresis -Hold metoprolol for now #Acute heart failure with reduced ejection fraction #New onset Atrial fibrillation/flutter with RVR s/ cardioversion 09/24/2023, NSR Recent ECHO 2021: EF 55-59%, GIDD; ECHO 09/22/2023 with EF 20-25% CXR: Cardiomegaly with pulmonary vascular congestion., severe MVR, aortic root dilatation, global hypokinesis of LV received Metoprolol 5 mg IV x2, now on IV amiodarone + BB ECG: Atrial Flutter Rate 155 bpm. QTC: 487 09/22 Continue suki for strict IOs - GDMT: *BetaB:Hold Metoprolol Succinate 25mg BID iso hypotension *RAAS: will add as tolerated -s/p IV lasic; will hold for now given NSR and hypotension - Strict I/Os, daily weights -Cardiology on consult, reviewed notes and discussed plan with Dr. Perez in person -Continue amio IV with amio 200mg BID with M -Avoid digoxin if possible given no presence of intracardiac device -Hold diuresis in interim -Simvastatin to atorvastatin 2/2 interaction with amiodarone -Warfain for AC iso mechanical valve: INR 3.2 -Resumed 2.5mg Warfarin #Aortic Valve Replacement, mechanical Chronic Stable AVR performed 1987; valve assessment limited with ECHO given shadowing; Cardiology considering possible eval of valve under fluoroscopy to assess function On Coumadin; INR goal 2.5-3.5 -Resume Warfarin uninterrupted #Hypokalemia *improved #Hypophosphatemia:*improved Replace lytes prn, K >4, M >2, P >3 #Cough -likely related to congestive heart failure, reports URI like symptoms but afebrile Biofire negative -Symptom control, manage HFrEF above #HTN: Chronic stable Discontinue amlodipine, hold ACEi until tachycardia resolved given relative hypotension Will introduce ACEi as tolerated #Aortic root dilatation -The aortic root and proximal ascending aorta are moderately enlarged. (4.1/4.5 cm) -Stable per echo 12/2021 #HLD: Chronic stable Transition to #MADAI -Continue CPAP Disposition: PCP: Dr. Messina Code Status: Full Code VTE Prophylaxis: On Coumadin Admission and Anticipated Discharge Date Admission Date: September 22, 2023 Subjective 24 hour events: Progressively more hypotensive overnight, required bolus, but with worsening pulm congestion--s/p diuresis and x2 digoxin +BIPAP Underwent cardioversion this am, NSR Patient reports feeling much improved this am after cardioversion Denies chest pain, palpitations Reports improved SOB Physical Exam Constitutional: WD/WN, vitals as above Respiratory: decreased air movement, but no crackles appreciated Cardiovascular: RRR, no murmur, no edema Results & Data Results & Data Vital Signs (Past 12 Hours) Vital Signs Temp Pulse Pulse Resp BP Pulse Ox O2 Del Method 09/24/23 03:40 36.4 C L 118 H 22 123/91 98 BiPAP 09/24/23 02:37 104 H 24 94 09/24/23 00:36 124 H 09/24/23 00:36 124 H 22 123/87 95 BiPAP 09/23/23 23:34 120 H 09/23/23 23:06 36.4 C L 120 H 23 114/81 97 BiPAP 09/23/23 22:56 BiPAP 09/23/23 22:20 119 H 09/23/23 22:16 118 H 36 H 98 09/23/23 22:14 115/76 98 BiPAP 09/23/23 21:50 113/78 09/23/23 20:45 36 H 95 Non-rebreather 09/23/23 20:44 122 H 31 H 98/71 L 90 Nasal Cannula 09/23/23 20:40 122 H 31 H 64/30 L 85 L Nasal Cannula 09/23/23 19:44 103/64 95 CPAP O2 Flow Rate FiO2 09/24/23 03:40 09/24/23 02:37 40 09/24/23 00:36 09/24/23 00:36 09/23/23 23:34 09/23/23 23:06 09/23/23 22:56 09/23/23 22:20 09/23/23 22:16 40 09/23/23 22:14 09/23/23 21:50 09/23/23 20:45 15 09/23/23 20:44 4 09/23/23 20:40 10 09/23/23 19:44 Laboratory Results Short CBC 09/24/23 09/24/23 Range/Units 00:00 06:18 WBC 14.72 H 9.38 (4.8-10.8) K/ul Hgb 13.7 13.3 (12.0-16.0) g/dl Hct 42.5 40.2 (37.0-47.0) % Plt Count 345 313 (130-400) K/uL BMP 09/23/23 09/24/23 21:49 06:18 Sodium 138 140 Potassium 4.0 4.0 Chloride 104 105 Carbon Dioxide 20 L 27 BUN 30 H 25 H Creatinine 1.40 H D 1.09 D Glucose 233 H 106 H Calcium 8.5 L 8.6 Urine 09/23/23 Range/Units Unknown Urine Color Dark Yellow Urine Appearance Cloudy A (Clear) Urine pH 5.0 (4.5-7.5) Ur Specific [place] 1.031 H (1.000-1.030) Urine Protein 2+ H (Negative) Urine Glucose (UA) Negative (Negative) Medications Administered Home Medications Medication Instructions Recorded Confirmed Last Taken amlodipine 5 mg tablet 2.5 mg PO QAM 10/01/18 09/22/23 09/30/18 amoxicillin 500 mg capsule 2,000 mg PO UD PRN prior to dental 10/01/18 09/22/23 Unknown procedures loratadine 10 mg tablet 10 mg PO DAILY PRN Allergy Symptoms 10/01/18 09/22/23 09/29/18 simvastatin 20 mg tablet 20 mg PO QAM 10/01/18 09/22/23 10/01/18 22:00 warfarin 5 mg tablet 2.5 mg PO QPM 10/01/18 09/22/23 09/26/18 22:00 PreserVision AREDS 1 tab PO AMPM 09/22/23 09/22/23 Unknown ctyroolckjdv-srsustpm-qfgszs tablet 1 tab PO QAM 09/22/23 09/22/23 Unknown Active Medications Generic Name Dose Route Start Last Admin Trade Name Freq PRN Reason Stop Dose Admin Amiodarone HCl 200 mg 09/23/23 17:00 09/24/23 09:04 Amiodarone 200 Mg Tab PO 10/23/23 16:59 200 mg BIDM ELISEO Administration Atorvastatin Calcium 10 mg 09/24/23 09:00 09/24/23 09:05 Atorvastatin 10 Mg Tab PO 10/24/23 08:59 10 mg QAM ELISEO Administration Amiodarone HCl/Dextrose 360 mg in 200 mls @ 33.333 mls/hr 09/22/23 14:30 09/24/23 10:38 Nexterone / D5w IV 10/22/23 14:29 1 mg/min .Q6H ELISEO 33.3 mls/hr Administration 1 MG/MIN Multivitamins/Minerals 1 tab 09/22/23 14:00 09/24/23 09:05 Cerovite Adv Formula Tab PO 10/22/23 13:59 1 tab DAILY ELISEO Administration
--- NOTE | 2023-09-24 07:49 | Electrocardiogram Report ---
Test Reason : Blood Pressure : / mmHG Vent. Rate : 121 BPM Atrial Rate : 241 BPM P-R Int : 000 ms QRS Dur : 098 ms QT Int : 448 ms P-R-T Axes : 000 -47 -84 degrees QTc Int : 636 ms Poor data quality, interpretation may be adversely affected Atrial flutter with variable A-V block with premature ventricular or aberrantly conducted complexes Left axis deviation Abnormal ECG When compared with ECG of 22-SEP-2023 09:15, Atrial flutter has replaced Atrial fibrillation Confirmed by Marcelino Ford ([id number]) on 09/24/2023 7:49:09 AM Referred By: REFERRED SELF Confirmed By:Tarun Ford
--- NOTE | 2023-09-24 07:56 | Communication Note ---
Date of Service: September 24, 2023 Last early in the night patient became hypotensive sbp in 60's, diaphoretic and hypoxia requiring 10lts oxygen and was placed on non rebreather.. Heart rates stayed in 120's. Gave 250cc fluid bolus.Gave 1gm iv magnesium.On Manual read SBP was in 110's.CXR showed worsening congestion. Gave a dose of iv Lasix 20mg and placed on bipap. .She felt better. Gave another dose of iv Lasix 20mg. Cardio ok for digoxin 250mcg which was given in two doses. Her labs showed cr 1.4 and lactic acid 4 mostly from hypoxia. lactic acid normalized. Later when checked on her she said she is doing fine. Procalcitonin normal in am labs.Creatine 1.09 in am labs.BP seems stable. Notified Am providers.
--- NOTE | 2023-09-24 08:01 | Post Operative Brief Note ---
Cardiology Brief Post Op Date of Surgery September 24, 2023 Pre & Post Diagnosis Preprocedure diagnosis: Atrial fibrillation with rapid ventricular response, congestive heart failure Postprocedure diagnosis: Successful conversion to sinus rhythm Procedure Direct-current cardioversion procedure: After informed consent was obtained and a timeout was performed the patient was sedated with the assistance of the anesthesia service receiving a total of 100 mg of IV propofol and 40 mg of IV lidocaine. The patient received a single dose of 200 J of biphasic energy with successful conversion to sinus rhythm. Post procedure, transient hypotension observed with systolic blood pressure in the 70s to 80s and her oxygen requirement on the oxime mask escalated from 3 L/min to 12 L/min transiently. After the effects of the sedation subsided, patient was conversant, with no focal neurologic deficits, systolic blood pressure return to the 90s, and her oxygen requirements returned to previous baseline of 3 to 5 L/min via oxy mask. Document Control Assistant Neeraj Perez DO Digital Marketing Executive none Estimated Blood Loss 0 Findings Consistent with Post-Op Diagnosis as noted above Anesthesia Type MAC Complications none
--- NOTE | 2023-09-24 08:05 | Cardioversion ---
Date of Service September 24, 2023 Electrical Cardioversion Rpt Electrical Cardioversion Report Pre & Post Diagnosis Preprocedure diagnosis: Atrial fibrillation with rapid ventricular response, congestive heart failure Postprocedure diagnosis: Successful conversion to sinus rhythm Procedure Direct-current cardioversion procedure: After informed consent was obtained and a timeout was performed the patient was sedated with the assistance of the an esthesia service receiving a total of 100 mg of IV propofol and 40 mg of IV lidocaine. The patient received a single dose of 200 J of biphasic energy with successful conversion to sinus rhythm. Post procedure, transient hypotension observed with systolic blood pressure in the 70s to 80s and her oxygen requirement on the oxime mask escalated from 3 L/min to 12 L/min transiently. After the effects of the sedation subsided, patient was conversant, with no focal neurologic deficits, systolic blood pressure return to the 90s, and her oxygen requirements returned to previous baseline of 3 to 5 L/min via oxy mask. Technical Manager Chemical Plant Neeraj Perez DO Mailer none Estimated Blood Loss 0 Findings Consistent with Post-Op Diagnosis as noted above Anesthesia Type MAC Complications none
--- NOTE | 2023-09-24 08:16 | Anesthesiology Progress Note ---
Date of Service September 24, 2023 Anesthesia Post Procedure Vital Signs Vital Signs: Temp Pulse Pulse Resp BP Pulse Ox O2 Del Method 09/24/23 08:10 76 20 104/77 93 Oxymask 09/24/23 08:05 77 20 98/76 L 94 Oxymask 09/24/23 08:00 75 18 100/78 95 Oxymask 09/24/23 07:55 75 18 95/77 L 95 Oxymask 09/24/23 07:50 75 20 92/69 L 96 Oxymask 09/24/23 07:45 74 18 87/60 L 94 Oxymask 09/24/23 07:40 68 16 74/59 L 86 L Oxymask 09/24/23 07:36 67 16 82/61 L 86 L Oxymask 09/24/23 07:33 122 H 18 123/95 100 Oxymask 09/24/23 07:30 122 H 20 118/93 97 Oxymask 09/24/23 03:40 36.4 C L 118 H 22 123/91 98 BiPAP 09/24/23 02:37 104 H 24 94 09/24/23 00:36 124 H 09/24/23 00:36 124 H 22 123/87 95 BiPAP 09/23/23 23:34 120 H 09/23/23 23:06 36.4 C L 120 H 23 114/81 97 BiPAP 09/23/23 22:56 BiPAP 09/23/23 22:20 119 H 09/23/23 22:16 118 H 36 H 98 09/23/23 22:14 115/76 98 BiPAP 09/23/23 21:50 113/78 09/23/23 20:45 36 H 95 Non-rebreather 09/23/23 20:44 122 H 31 H 98/71 L 90 Nasal Cannula 09/23/23 20:40 122 H 31 H 64/30 L 85 L Nasal Cannula 09/23/23 19:44 103/64 95 CPAP 09/23/23 19:22 36.8 C 126 H 20 83/63 L 96 Room Air 09/23/23 16:15 111/82 09/23/23 15:55 128 H 09/23/23 15:30 36.4 C L 126 H 18 91/64 L 93 Room Air 09/23/23 11:43 36.6 C 130 H 18 103/71 94 Nasal Cannula 09/23/23 08:22 36.8 C 129 H 20 101/72 92 Room Air O2 Flow Rate FiO2 09/24/23 08:10 3 09/24/23 08:05 4 09/24/23 08:00 5 09/24/23 07:55 6 09/24/23 07:50 10 09/24/23 07:45 14 09/24/23 07:40 14 09/24/23 07:36 12 09/24/23 07:33 10 09/24/23 07:30 3 09/24/23 03:40 09/24/23 02:37 40 09/24/23 00:36 09/24/23 00:36 09/23/23 23:34 09/23/23 23:06 09/23/23 22:56 09/23/23 22:20 09/23/23 22:16 40 09/23/23 22:14 09/23/23 21:50 09/23/23 20:45 15 09/23/23 20:44 4 09/23/23 20:40 10 09/23/23 19:44 09/23/23 19:22 09/23/23 16:15 09/23/23 15:55 09/23/23 15:30 09/23/23 11:43 2 09/23/23 08:22 Transfer of Care Handoff Completed per policy Notes Mental Status: alert / awake / arousable Patient Amnestic to Procedure: Yes Nausea / Vomiting: adequately controlled Pain: adequately controlled Airway Patency, RR, SpO2: stable & adequate BP & HR: stable & adequate Hydration State: stable & adequate Anesthetic Complications: no major complications apparent
--- NOTE | 2023-09-24 08:31 | Cardiology Progress Note ---
Date of Service September 24, 2023 Assessment & Plan (1) Atrial flutter with rapid ventricular response: (2) Acute HFrEF (heart failure with reduced ejection fraction): (3) Tachycardia induced cardiomyopathy: (4) S/P AVR (aortic valve replacement): Plan 62-year-old female with history of severe aortic valve stenosis and aortic valve insufficiency which per her description was felt to be due to rheumatic heart disease. She therefore underwent aortic valve replacement in 1987 with ball in cage mechanical prosthesis at the age of 26 years, at [facility] in [place], [place] Previously with preserved LV systolic function. Patient presents now with at least 1 to 2 months history of increasing dyspnea Found to be in atrial fibrillation/flutter with rapid ventricular rate. Presentation with superimposed volume overload and newly observed decline in overall ejection fraction. Suspect tachycardia mediated cardiomyopathy. Post procedure EKG reveals sinus rhythm at 70 bpm with noted T wave inversions in the anterior precordial leads V1-V3 suggestive of possible anterolateral ischemia. Compared to historical EKGs performed as an outpatient within the [facility] in June,, October,, and October 2018, subtle, low amplitude T wave inversions had been been present in V1-V3 on those historical tracings, with T wave flattening in the lateral leads as well as the inferior leads. Of note, patient does state her father had a history of coronary heart disease with CABG in his 60s. The patient's most recent outpatient lipid panel in October, revealed relatively well-controlled LDL level of 84 mg/dL on simvastatin 20 mg daily (transitioned to atorvastatin this admission due to interaction between simvastatin and amiodarone). Outpatient echocardiogram within the [facility] performed December, with preserved LVEF in the range of 55-59% at that time and LVEF around 20% per study performed this admission 09/22/2023. The continuous-wave Doppler velocities across the prosthetic aortic valve were normal for this prosthesis at the time of the 2021 study at 2.6 m/s, and a relatively similar on the study performed this admission. Review of EKG tracings performed since 09/22/2023 is classic for a right-sided tricuspid isthmus flutter, and suggests either atrial fibrillation or an atypical flutter. -Goal INR 2.5-3.5 with INR of 3.2 today. Resume coumadin 2.5 mg daily. Daily INR levels. -Recommend uninterrupted anticoagulation given mechanical aortic valve prosthesis and AF with cardioversion. -Continue amiodarone infusion at 1 mg/h along with amiodarone 200 mg p.o. twice daily with meals. -LFTs normal on admission. TSH within normal limits 09/24/2023. -Hold metoprolol for now pending follow-up of blood pressure. -Although digoxin use a consideration given atrial arrhythmias and low blood pressure, typically combination use of digoxin and amiodarone is avoided unless intracardiac device is present for heart rate support. -Hold off on additional furosemide this morning pending reassessment throughout the day today. -future considerations include the addition of an ACEI / ARB or Entreso , and SGLT2 inhibitor, however systolic BP on the lower side and will not start yet. Tachycardia mediated left ventricular systolic dysfunction is still felt to be high on the differential diagnosis for the patient's presentation, however coronary heart disease is certainly possible consideration. HS troponin normal x 2 measurements this admission. -Given the age of her valvular prosthesis, prosthetic dysfunction is certainly a consideration. The continuous-wave Doppler velocities as noted in 2021 when ejection fraction was normal or normal for this prosthesis and around 2.6 m/s and has not changed much in the setting of low ejection fraction. Assessment of this valve is technically limited by transient thoracic echocardiography and transesophageal echocardiography due to acoustic shadowing. Future considerations include evaluation of valve excursion via fluoroscopy which can be performed in the Lead Producer. Admission and Anticipated Discharge Date Admission Date: September 22, 2023 Subjective Patient seen in cardiology follow-up pre-, during, post direct-current cardioversion this morning which was performed in room 106 of the first [facility] with the assistance of the anesthesia service. Patient developed progressive shortness of breath and relative hypotension with systolic blood pressure in the 90s last evening. She received a bolus of 250 mL of fluid for treatment of hypotension. After which chest x-ray performed that revealed interstitial edema and subsequently received 20 mg of IV furosemide and just after 11 PM on 09/23/2023 with subsequent urine output of 1.5 L. Blood pressure and respiratory status improved after furosemide and with the addition of BiPAP overnight last night. This morning she was transferred to an oxime mask at 3 L nasal cannula and brought down to the first floor ICU for cardioversion. Cardioversion was successful with worship of sinus rhythm. Blood pressure and pulse oximetry improved now that the effects of the sedation have subsided, with most recent vital signs as obtained at 8:12 AM of heart rate of 79 bpm, sinus rhythm, blood pressure 104/77, pulse oximetry 93%. Patient notes feeling markedly improved. Physical Exam Physical Exam: HR 79-80, blood pressure 104/77, pulse oximetry 94-95% on 3 L, oxy mask, 8:15 AM Constitutional: + morbidly obese Eyes: PERRL, conjunctivae normal, anicteric sclerae ENMT: external ear and nose normal, oropharynx normal Neck: trachea midline, no thyromegaly Respiratory: Auscultation: + diminished lung sounds (Mildly decreased breath sounds at the bases); no rales Cardiovascular: Rate/Rhythm: regular rate and + tachycardic Heart Sounds: + murmur (Treasure prosthetic heart sounds noted) Extremities: + edema (1+ LE edema ) Gastrointestinal (Abdomen): normal bowel sounds, soft, nontender, no hepatosplenomegaly Musculoskeletal: no cyanosis or clubbing, extremities motor strength 5/5 Results & Data Vital Signs (Past 12 Hours) Vital Signs Temp Pulse Pulse Resp BP Pulse Ox O2 Del Method 09/24/23 07:33 122 H 18 123/95 100 Oxymask 09/24/23 07:30 122 H 20 118/93 97 Oxymask 09/24/23 03:40 36.4 C L 118 H 22 123/91 98 BiPAP 09/24/23 02:37 104 H 24 94 09/24/23 00:36 124 H 09/24/23 00:36 124 H 22 123/87 95 BiPAP 09/23/23 23:34 120 H 09/23/23 23:06 36.4 C L 120 H 23 114/81 97 BiPAP 09/23/23 22:56 BiPAP 09/23/23 22:20 119 H 09/23/23 22:16 118 H 36 H 98 09/23/23 22:14 115/76 98 BiPAP 09/23/23 21:50 113/78 09/23/23 20:45 36 H 95 Non-rebreather 09/23/23 20:44 122 H 31 H 98/71 L 90 Nasal Cannula 09/23/23 20:40 122 H 31 H 64/30 L 85 L Nasal Cannula O2 Flow Rate FiO2 12/10/23 07:33 10 09/24/23 07:30 3 09/24/23 03:40 09/24/23 02:37 40 09/24/23 00:36 09/24/23 00:36 09/23/23 23:34 09/23/23 23:06 09/23/23 22:56 09/23/23 22:20 09/23/23 22:16 40 09/23/23 22:14 09/23/23 21:50 09/23/23 20:45 15 09/23/23 20:44 4 09/23/23 20:40 10 Laboratory Results Cardiac Enzymes 09/23/23 Range/Units 21:49 Troponin I High Sens 11.9 (0-14) pg/ml Coagulation 09/23/23 09/24/23 Range/Units 06:40 06:18 PT 41.9 H 32.1 H (9.0-12.0) Seconds CBC 09/24/23 09/24/23 Range/Units 00:00 06:18 WBC 14.72 H 9.38 (4.8-10.8) K/ul RBC 4.68 4.55 (4.20-5.40) M/uL Hgb 13.7 13.3 (12.0-16.0) g/dl Hct 42.5 40.2 (37.0-47.0) % Plt Count 345 313 (130-400) K/uL Neut # (Auto) 13.08 H (1.40-6.50) K/uL Lymph # (Auto) 0.88 L (1.20-3.40) K/uL Preston # (Auto) 0.62 H (0.11-0.59) K/uL Eos # (Auto) 0.02 (0.00-0.50) K/uL Baso # (Auto) 0.03 (0.00-0.20) K/uL Comprehensive Metabolic Panel 09/23/23 09/24/23 Range/Units 21:49 06:18 Sodium 138 140 (136-145) mmol/L Potassium 4.0 4.0 (3.5-5.1) mmol/L Chloride 104 105 (98-107) mmol/L Carbon Dioxide 20 L 27 (21-32) mmol/L BUN 30 H 25 H (6-23) mg/dl Creatinine 1.40 H D 1.09 D (0.6-1.2) mg/dl Glucose 233 H 106 H (70-99(Fasting)) mg/dl Calcium 8.5 L 8.6 (8.6-10.3) mg/dl Intake and Output 09/23/23 09/24/23 09/24/23 22:59 06:59 14:59 Intake Total 102.675 / 858.720 466.3 / 858.720 Output Total 325 / 2150 1200 / 2150 Balance -222.325 / -1291.280 -733.7 / -1291.280 Intake: IV 102.675 / 858.720 466.3 / 858.720 Amiodarone / D5w 360 mg In 200 102.675 / 758.720 366.3 / 758.720 ml @ 1 MG/MIN 33.333 mls/hr IV .Q6H ELISEO Rx#:[id number] Magnesium Sulfate / D5w 1 gm In 100 / 100 100 ml @ 50 mls/hr IV ONE ONE Rx#:[id number] Output: Urine Amount (Catheter) 325 / 1525 1200 / 1525 Candelario/Indwelling 325 / 1525 1200 / 1525 Other: Other Intake Source NPO Weight 122.4 kg 122.4 kg Weight Measurement Method Built in [facility] Patient Weight 09/25/23 06:59 Weight 122.4 kg
[2023-09-24] MEDS: AMIODARONE 200 MG TAB PO SCH ×2 (09:04→16:24)
[2023-09-24] MEDS: CEROVITE ADV FORMULA TAB PO SCH (09:05)
[2023-09-24] MEDS: ATORVASTATIN 10 MG TAB PO SCH (09:05)
--- NOTE | 2023-09-24 12:46 | Electrocardiogram Report ---
Test Reason : Blood Pressure : / mmHG Vent. Rate : 070 BPM Atrial Rate : 070 BPM P-R Int : 160 ms QRS Dur : 100 ms QT Int : 474 ms P-R-T Axes : 045 -35 263 degrees QTc Int : 511 ms Sinus rhythm with Premature atrial complexes Left axis deviation Prolonged QT Abnormal ECG When compared with ECG of 23-SEP-2023 21:13, Sinus rhythm has replaced Atrial flutter Vent. rate has decreased BY 51 BPM Nonspecific T wave abnormality has replaced inverted T waves in Inferior leads Confirmed by Marcelino Ford ([id number]) on 09/24/2023 12:46:15 PM Referred By: REFERRED SELF Confirmed By:Tarun Ford
[2023-09-24] MEDS ORDERED: WARFARIN SOD 2.5 MG TAB PO SCH (16:00)
[2023-09-25] MEDS: AMIODARONE / D5W 360 MG/200 ML BAG IV SCH ×3 (04:32→11:00)
--- NOTE | 2023-09-25 07:35 | Cardiology Progress Note ---
Date of Service September 25, 2023 Assessment & Plan (1) Atrial flutter with rapid ventricular response: (2) Acute HFrEF (heart failure with reduced ejection fraction): (3) Tachycardia induced cardiomyopathy: (4) S/P AVR (aortic valve replacement): Plan 62-year-old female with history of severe aortic valve stenosis and aortic valve insufficiency which per her description was felt to be due to rheumatic heart disease. She therefore underwent aortic valve replacement in 1987 with ball in cage mechanical prosthesis at the age of 26 years, at [facility] in [place], [place] Previously with preserved LV systolic function. Patient presents now with at least 1 to 2 months history of increasing dyspnea Found to be in atrial fibrillation/flutter with rapid ventricular rate. Presentation with superimposed volume overload and newly observed decline in overall ejection fraction. Suspect tachycardia mediated cardiomyopathy. Post procedure EKG reveals sinus rhythm at 70 bpm with noted T wave inversions in the anterior precordial leads V1-V3 suggestive of possible anterolateral ischemia. Compared to historical EKGs performed as an outpatient within the [facility], [place], operated by [facility] in June,, October,, and October 2018, subtle, low amplitude T wave inversions had been been present in V1-V3 on those historical tracings, with T wave flattening in the lateral leads as well as the inferior leads. Of note, patient does state her father had a history of coronary heart disease with CABG in his 60s. The patient's most recent outpatient lipid panel in October, revealed relatively well-controlled LDL level of 84 mg/dL on simvastatin 20 mg daily (transitioned to atorvastatin this admission due to interaction between simvastatin and amiodarone). Outpatient echocardiogram within the [facility], [place], operated by [facility] performed December, with preserved LVEF in the range of 55-59% at that time and LVEF around 20% per study performed this admission 09/22/2023. The continuous-wave Doppler velocities across the prosthetic aortic valve were normal for this prosthesis at the time of the 2021 study at 2.6 m/s, and a relatively similar on the study performed this admission. Review of EKG tracings performed since 09/22/2023 is classic for a right-sided tricuspid isthmus flutter, and suggests either atrial fibrillation or an atypical flutter. -Goal INR 2.5-3.5 with INR of 3.2 today. Resume coumadin 2.5 mg daily. Daily INR levels. -Recommend uninterrupted anticoagulation given mechanical aortic valve prosthesis and AF with cardioversion. -Continue amiodarone infusion at 1 mg/h along with amiodarone 200 mg p.o. twice daily with meals. -LFTs normal on admission. TSH within normal limits 09/24/2023. -Hold metoprolol for now pending follow-up of blood pressure. -Although digoxin use a consideration given atrial arrhythmias and low blood pressure, typically combination use of digoxin and amiodarone is avoided unless intracardiac device is present for heart rate support. -Hold off on additional furosemide this morning pending reassessment throughout the day today. -future considerations include the addition of an ACEI / ARB or Entreso , and SGLT2 inhibitor, however systolic BP on the lower side and will not start yet. Tachycardia mediated left ventricular systolic dysfunction is still felt to be high on the differential diagnosis for the patient's presentation, however coronary heart disease is certainly possible consideration. HS troponin normal x 2 measurements this admission. -Given the age of her valvular prosthesis, prosthetic dysfunction is certainly a consideration. The continuous-wave Doppler velocities as noted in 2021 when ejection fraction was normal or normal for this prosthesis and around 2.6 m/s and has not changed much in the setting of low ejection fraction. Assessment of this valve is technically limited by transient thoracic echocardiography and transesophageal echocardiography due to acoustic shadowing. Future considerations include evaluation of valve excursion via fluoroscopy which can be performed in the Director Consumer Affairs. Admission and Anticipated Discharge Date Admission Date: September 22, 2023 Supervising Physician Co-Signing Physician Notes 62 yo woman Presenting with Atrial Flutter S/P DC Cardioversion S/P AVR - AVR difficult to confirm valve type by ECHO Patient referred for Fluoroscopy - Confirmed Tilting Disc - operating normally. Pt currently in NSR Plans: -Amiodarone oral load - 400 mg po BID x 1 week; then 200 mg po per day -STOP IV Amiodarone -Continue Toprol XL 25 mg po per day -TSH 4.4 -INR 2.6 -Continue coumadin - target INR 2.5-3.5 -Patient appears close to euvolemia -STOP any IV LASIX -Start Lasix 20 mg po per day -Kdur 40 meq po BID -Mag goal >2 -Remove Candelario Catheter -PT/OT - ambulate -Secure outpt appointment with [facility] at [facility] -Outpt Sleep Study Ronal Hale Subjective ID: 62 yo woman S/P AVR in 1987 Tilting Disc - meticulous INR management; no hx of endocarditis. No complications noted over the decades Presented with aflutter in 09/22/23 Referred for admission Diuresed DC cardioversion on 09/24/2023 Events Overnight: None reported Subjective: -Feels back to near baseline -Breathing improved -No fever or chills Review of Systems Review of Systems: All systems reviewed & are unremarkable except as noted in HPI & below Physical Exam Physical Exam: Obesity S1S2 - S2 crisp and mechanical 2/6 systolic murmur No significant AI appreciated CTA B Trace LE edema Warm and perfused Results & Data Vital Signs (Past 12 Hours) Vital Signs Temp Pulse Pulse Resp BP Pulse Ox O2 Del Method 09/25/23 03:37 36.6 C 71 18 101/69 94 BiPAP 09/24/23 23:24 36.5 C 72 18 105/71 91 Room Air 09/24/23 21:59 78 09/24/23 20:37 Room Air, CPAP 09/24/23 19:33 36.5 C 87 18 113/81 92 Room Air Medications Administered Current Inpatient Medications Acetaminophen (Acetaminophen 325 Mg Tab) 650 mg PO Q4H PRN PRN Reason: Pain or Fever Stop: 10/22/23 12:27 Al Hydrox/Mg Hydrox/Simethicone (Aluminum/Magnesium Susp 30 Ml Udc) 15 ml PO Q4H PRN PRN Reason: Dyspepsia Stop: 10/22/23 12:27 Amiodarone HCl (Amiodarone 200 Mg Tab) 200 mg PO BIDM [facility] Stop: 10/23/23 16:59 Last Admin: 09/24/23 16:24 Dose: 200 mg Atorvastatin Calcium (Atorvastatin 10 Mg Tab) 10 mg PO QAM [facility] Stop: 10/24/23 08:59 Last Admin: 09/24/23 09:05 Dose: 10 mg Amiodarone HCl/Dextrose (Nexterone / D5w) 360 mg in 200 mls @ 33.333 mls/hr IV .Q6H [facility] Stop: 10/22/23 14:29 Last Admin: 09/25/23 04:32 Dose: 1 mg/min, 33.3 mls/hr Magnesium Hydroxide (Magnesium Hydroxide Susp 30 Ml Udc) 30 ml PO Q12H PRN PRN Reason: Constipation Stop: 10/22/23 12:27 Metoprolol Succinate (Metoprolol Succ 25mg Ext Rel Tab) 25 mg PO QAM [facility] Stop: 10/25/23 08:59 Multivitamins/Minerals (Cerovite Adv Formula Tab) 1 tab PO DAILY [facility] Stop: 10/22/23 13:59 Last Admin: 09/24/23 09:05 Dose: 1 tab Ondansetron HCl (Ondansetron Inj 2 Mg/Ml 2 Ml Vial) 4 mg IV Q6H PRN PRN Reason: Nausea Stop: 10/22/23 12:27 Polyethylene Glycol (Polyethylene (Miralax) 17 Gm Pack) 17 gm PO DAILY PRN PRN Reason: Constipation Stop: 10/22/23 12:27 Warfarin Sodium (Warfarin Sod 2.5 Mg Tab) 2.5 mg PO DAILY@1600 [facility] Stop: 10/24/23 15:59 Last Admin: 09/24/23 16:25 Dose: 2.5 mg
[2023-09-25 08:00] LABS: Hemoglobin 12.5 g/dl (12.0-16.0); Mean Corpuscular Hemoglobin 29.1 pg (25.0-34.0); Mean Corpuscular Hgb Conc 32.9 g/dL (32.0-36.0); Mean Corpuscular Volume 88.6 fL (80.0-100.0); Mean Platelet Volume 11.5 fL (9.4-12.4); Platelet Count 277 K/uL (130-400); RDW Standard Deviation 51.9 fL (36.4-46.3); Red Blood Count 4.29 M/uL (4.20-5.40); White Blood Count 8.65 K/ul (4.8-10.8)
[2023-09-25 08:07] LABS: BUN Creatinine Ratio 23.7 (10-20); Calcium 8.8 mg/dl (8.6-10.3); Creatinine Clr Calc Pharmacy 76.9 ml/min; Est GFR (African American) 72.5 ml/min; Est GFR (Non-African American) 62.6 ml/min; Magnesium 2.1 mg/dl (1.7-2.4); Phosphorus 3.2 mg/dl (2.5-4.9); Potassium 3.3 mmol/L (3.5-5.1)
[2023-09-25 08:09] LABS: INR 2.6 (0.9-1.1); Prothrombin Time 26.6 Seconds (9.0-12.0)
[2023-09-25] MEDS: AMIODARONE 200 MG TAB PO SCH ×2 (08:13→16:10)
[2023-09-25] MEDS: ATORVASTATIN 10 MG TAB PO SCH (08:13)
[2023-09-25] MEDS: CEROVITE ADV FORMULA TAB PO SCH (08:13)
[2023-09-25] MEDS: METOPROLOL SUCC 25MG EXT REL TAB PO SCH (08:13)
[2023-09-25] MEDS ORDERED: POTASSIUM CHLORIDE CRTAB 20 MEQ TABCR PO STA (08:18)
--- NOTE | 2023-09-25 08:22 | Hospitalist Progress Note ---
Date of Service September 25, 2023 Assessment & Plan (1) Tachycardia: (2) (HFpEF) heart failure with preserved ejection fraction: (3) Cough: (4) SOB (shortness of breath): (5) Hypokalemia: (6) History of transcatheter aortic valve replacement (TAVR): Plan Ms. Cleveland is a 63-year-old female with a past medical history of AVR (1987 on Coumadin), HTN, dyslipidemia, MADAI ( uses CPAP), and enlarged aorta that presented to the ED after being at an outpatient cardiology appointment and was noted to have a heart rate in the 160s and in a flutter. She reports that she has had an upper respiratory illness over the past 2 months and has been taking Robitussin almost every day. Follows with [facility]. Never has had AF/Flutter. Normally takes Amlodipine, but reports feeling heart palpitations and SOB for three weeks. She reports her fitbit was indicating arrhythmia, but she took it off. In the ED she was given a total of 10 mg Metoprolol IV; with some response, now in the 130s. Cardiology evaluated patient int he ED and was given 40 mg IV Lasix. 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 Patient currently on IV amiodarone and metoprolol, still sustaining heart rates in 120- 130s over the evening of 09/22 into 09/23. Course complicated by hypotension requiring bolus, with subsequent pulm congestion. Patient responded well to diuersis and BIPAP. On the morning of 09/24, patient underwent Cardioversion with subsequent return to sinus. Patient reports feeling notably improved since CV. On 09/25, patient went to floroscopy to assess valve, and noted normal valve function. #Hypotension *stable -CTM off of diuresis -Plan for Metorpolol succinate 25mg daily, hold other antihypertensives at this time #Acute heart failure with reduced ejection fraction #New onset Atrial fibrillation/flutter with RVR s/ cardioversion 09/24/2023, NSR Recent ECHO 2021: EF 55-59%, GIDD; ECHO 09/22/2023 with EF 20-25% CXR: Cardiomegaly with pulmonary vascular congestion., severe MVR, aortic root dilatation, global hypokinesis of LV received Metoprolol 5 mg IV x2, now on IV amiodarone + BB ECG: Atrial Flutter Rate 155 bpm. QTC: 487 09/22 Continue cohn for strict IOs - GDMT: *BetaB:Continue Metoprolol Succinate 25mg daily *RAAS: will add as tolerated, held given hypotension -s/p IV lasix; will hold for now given NSR and hypotension - Strict I/Os, daily weights -Cardiology on consult, reviewed notes -Transition to amiodarone 400mg BID load x 7 days, then 200mg daily -Avoid digoxin if possible given no presence of intracardiac device -Start 20mg lasix PO -Potassium supplementation -Simvastatin to atorvastatin 2/2 interaction with amiodarone -Warfain for AC iso mechanical valve: INR 2.6 -Resumed 2.5mg Warfarin; increased 3mg this evening given goal 2.5-3.5 #Aortic Valve Replacement, mechanical Chronic Stable AVR performed 1987; valve assessment limited with ECHO given shadowing; Cardiology considering possible eval of valve under fluoroscopy to assess function On Coumadin; INR goal 2.5-3.5 -Resume Warfarin uninterrupted #Hypokalemia *improved #Hypophosphatemia:*improved Replace lytes prn, K >4, M >2, P >3 #Cough -likely related to congestive heart failure, reports URI like symptoms but afebrile Biofire negative -Symptom control, manage HFrEF above #HTN: Chronic stable Discontinue amlodipine, hold ACEi until tachycardia resolved given relative hypotension Will introduce ACEi as tolerated #Aortic root dilatation -The aortic root and proximal ascending aorta are moderately enlarged. (4.1/4.5 cm) -Stable per echo 12/2021 #HLD: Chronic stable Transition to #MADAI -Continue CPAP Disposition: PCP: Dr. Messina Code Status: Full Code VTE Prophylaxis: On Coumadin Admission and Anticipated Discharge Date Admission Date: September 22, 2023 Subjective went to [facility] to assess valve, working well reports feeling tired Physical Exam Constitutional: WD/WN, vitals as above Cardiovascular: +ANNETTE RRR Gastrointestinal (Abdomen): normal bowel sounds, soft, nontender, no hepatosplenomegaly Results & Data Results & Data Vital Signs (Past 12 Hours) Vital Signs Temp Pulse Pulse Resp BP Pulse Ox O2 Del Method 09/25/23 03:37 36.6 C 71 18 101/69 94 BiPAP 12/10/23 23:24 36.5 C 72 18 105/71 91 Room Air 09/24/23 21:59 78 09/24/23 20:37 Room Air, CPAP Laboratory Results Short CBC 09/25/23 Range/Units 06:55 WBC 8.65 (4.8-10.8) K/ul Hgb 12.5 (12.0-16.0) g/dl Hct 38.0 (37.0-47.0) % Plt Count 277 (130-400) K/uL BMP 09/25/23 06:55 Sodium 139 Potassium 3.3 L Chloride 104 Carbon Dioxide 28 BUN 23 Creatinine 0.97 Glucose 86 Calcium 8.8 Medications Administered Home Medications Medication Instructions Recorded Confirmed Last Taken amlodipine 5 mg tablet 2.5 mg PO QAM 10/01/18 09/22/23 09/30/18 amoxicillin 500 mg capsule 2,000 mg PO UD PRN prior to dental 10/01/18 09/22/23 Unknown procedures loratadine 10 mg tablet 10 mg PO DAILY PRN Allergy Symptoms 10/01/18 09/22/23 09/29/18 simvastatin 20 mg tablet 20 mg PO QAM 10/01/18 09/22/23 10/01/18 22:00 warfarin 5 mg tablet 2.5 mg PO QPM 10/01/18 09/22/23 09/26/18 22:00 PreserVision AREDS 1 tab PO AMPM 09/22/23 09/22/23 Unknown pscsviybtcje-tqnjebtr-wqyqyn tablet 1 tab PO QAM 09/22/23 09/22/23 Unknown Active Medications Generic Name Dose Route Start Last Admin Trade Name Freq PRN Reason Stop Dose Admin Amiodarone HCl 200 mg 09/23/23 17:00 09/25/23 08:13 Amiodarone 200 Mg Tab PO 10/23/23 16:59 200 mg BIDM ELISEO Administration Atorvastatin Calcium 10 mg 09/24/23 09:00 09/25/23 08:13 Atorvastatin 10 Mg Tab PO 10/24/23 08:59 10 mg QAM ELISEO Administration Amiodarone HCl/Dextrose 360 mg in 200 mls @ 33.333 mls/hr 09/22/23 14:30 09/25/23 08:14 Nexterone / D5w IV 10/22/23 14:29 Not Given .Q6H ELISEO 1 MG/MIN Metoprolol Succinate 25 mg 09/25/23 09:00 09/25/23 08:13 Metoprolol Succ 25mg Ext Rel Tab PO 10/25/23 08:59 25 mg QAM ELISEO Administration Multivitamins/Minerals 1 tab 09/22/23 14:00 09/25/23 08:13 Cerovite Adv Formula Tab PO 10/22/23 13:59 1 tab DAILY ELISEO Administration
[2023-09-25] MEDS ORDERED: WARFARIN SOD 3 MG TAB PO SCH (16:00)
[2023-09-25] MEDS: POTASSIUM CHLORIDE CRTAB 20 MEQ TABCR PO SCH (20:34)
[2023-09-26 07:06] LABS: Hematocrit (blood only) 38.9 % (37.0-47.0); Hemoglobin 12.4 g/dl (12.0-16.0); Mean Corpuscular Hgb Conc 31.9 g/dL (32.0-36.0); Mean Corpuscular Volume 90.9 fL (80.0-100.0); Mean Platelet Volume 11.5 fL (9.4-12.4); Platelet Count 277 K/uL (130-400); RDW Coefficient of Variation 15.9 % (11.5-14.5); RDW Standard Deviation 53.1 fL (36.4-46.3); Red Blood Count 4.28 M/uL (4.20-5.40); White Blood Count 7.33 K/ul (4.8-10.8)
[2023-09-26 07:27] LABS: Creatinine Clr Calc Pharmacy 82.3 ml/min; Est GFR (African American) 78.4 ml/min; Est GFR (Non-African American) 67.6 ml/min; Magnesium 2.2 mg/dl (1.7-2.4)
[2023-09-26 07:45] LABS: Prothrombin Time 30.3 Seconds (9.0-12.0)
[2023-09-26] MEDS: AMIODARONE 200 MG TAB PO SCH (08:18)
[2023-09-26] MEDS: ATORVASTATIN 10 MG TAB PO SCH (08:18)
[2023-09-26] MEDS: METOPROLOL SUCC 25MG EXT REL TAB PO SCH (08:19)
[2023-09-26] MEDS: POTASSIUM CHLORIDE CRTAB 20 MEQ TABCR PO SCH (08:19)
[2023-09-26] MEDS: CEROVITE ADV FORMULA TAB PO SCH (08:19)
--- NOTE | 2023-09-26 08:28 | Cardiology Progress Note ---
Date of Service September 26, 2023 Assessment & Plan Admission and Anticipated Discharge Date Admission Date: September 22, 2023 Supervising Physician Co-Signing Physician Notes 62 yo woman Presenting with Atrial Flutter S/P DC Cardioversion S/P AVR - AVR difficult to confirm valve type by ECHO Patient referred for Fluoroscopy - Confirmed Tilting Disc - operating normally. Pt currently in NSR Plans: -Amiodarone oral load - 400 mg po BID x 1 week; then 200 mg po per day -Amiodarone IV (OFF) -Continue Toprol XL 25 mg po per day -TSH 4.4 -INR 3.0 -Continue coumadin - target INR 2.5-3.5 -Patient appears close to euvolemia -LASIX IV (OFF) -Increase Lasix to 40 mg po per day -Kdur 40 meq po BID -Mag goal >2 -Candelario Catheter (OUT) -PT/OT - ambulate -Secure outpt appointment with [facility] at [facility] -Outpt BMP -Outpt Sleep Study -Connected with primary team -Please call back with any additional questions Ronal Hale Subjective Events overnight: * No events * Telemetry - NSR Subjective: * No complaints Review of Systems Review of Systems: All systems reviewed & are unremarkable except as noted in HPI & below Physical Exam Physical Exam: Obesity JVP 12 cm H20 S1S2 - S2 crisp and mechanical 2/6 systolic murmur No significant AI appreciated CTA B Trace LE edema Warm and perfused Results & Data Vital Signs (Past 12 Hours) Vital Signs Temp Pulse Pulse Resp BP Pulse Ox O2 Del Method 09/26/23 07:26 36.5 C 73 18 105/72 97 Room Air 09/26/23 03:17 36.7 C 72 16 110/72 93 CPAP 09/25/23 23:41 71 09/25/23 22:25 36.5 C 72 20 105/76 92 CPAP Laboratory Results Coagulation 09/26/23 Range/Units 06:40 PT 30.3 H (9.0-12.0) Seconds CBC 09/26/23 Range/Units 06:40 WBC 7.33 (4.8-10.8) K/ul RBC 4.28 (4.20-5.40) M/uL Hgb 12.4 (12.0-16.0) g/dl Hct 38.9 (37.0-47.0) % Plt Count 277 (130-400) K/uL Comprehensive Metabolic Panel 09/26/23 Range/Units 06:40 Sodium 141 (136-145) mmol/L Potassium 4.0 D (3.5-5.1) mmol/L Chloride 106 (98-107) mmol/L Carbon Dioxide 30 (21-32) mmol/L BUN 20 (6-23) mg/dl Creatinine 0.91 (0.6-1.2) mg/dl Glucose 86 (70-99(Fasting)) mg/dl Calcium 9.0 (8.6-10.3) mg/dl Intake and Output 09/25/23 09/26/23 09/26/23 22:59 06:59 14:59 Intake Total 350.935 / 1130.935 Balance 350.935 / 629.935 Intake: IV 175.935 / 375.935 Amiodarone / D5w 360 mg In 200 175.935 / 375.935 ml @ 1 MG/MIN 33.333 mls/hr IV .Q6H [facility] Rx#:[id number] Oral 175 / 755 Other: Other Intake Source Sips # Unmeasured Voids 2 1 Weight 121.3 kg Weight Measurement Method [facility] Medications Administered Current Inpatient Medications Acetaminophen (Acetaminophen 325 Mg Tab) 650 mg PO Q4H PRN PRN Reason: Pain or Fever Stop: 10/22/23 12:27 Al Hydrox/Mg Hydrox/Simethicone (Aluminum/Magnesium Susp 30 Ml Udc) 15 ml PO Q4H PRN PRN Reason: Dyspepsia Stop: 10/22/23 12:27 Amiodarone HCl (Amiodarone 200 Mg Tab) 400 mg PO BIDM [facility] Stop: 10/25/23 16:59 Last Admin: 09/26/23 08:18 Dose: 400 mg Atorvastatin Calcium (Atorvastatin 10 Mg Tab) [facility] [place] Stop: 10/24/23 08:59 Last Admin: 09/26/23 08:18 Dose: 10 mg Furosemide (Furosemide 20 Mg Tab) 20 [facility] [place] Stop: 10/26/23 08:59 Last Admin: 09/26/23 08:19 Dose: 20 mg Magnesium Hydroxide (Magnesium Hydroxide Susp 30 Ml Udc) 30 ml PO Q12H PRN PRN Reason: Constipation Stop: 10/22/23 12:27 Metoprolol Succinate (Metoprolol Succ 25mg Ext Rel Tab) 25 mg PO QAM [facility] Stop: 10/25/23 08:59 Last Admin: 09/26/23 08:19 Dose: 25 mg Multivitamins/Minerals (Cerovite Adv Formula Tab) 1 tab PO DAILY [facility] Stop: 10/22/23 13:59 Last Admin: 09/26/23 08:19 Dose: 1 tab Ondansetron HCl (Ondansetron Inj 2 Mg/Ml 2 Ml Vial) 4 mg IV Q6H PRN PRN Reason: Nausea Stop: 10/22/23 12:27 Polyethylene Glycol (Polyethylene (Miralax) 17 Gm Pack) 17 gm PO DAILY PRN PRN Reason: Constipation Stop: 10/22/23 12:27 Potassium Chloride (Potassium Chloride Crtab 20 Meq Tabcr) 40 meq PO BID [facility] Stop: 10/25/23 20:59 Last Admin: 09/26/23 08:19 Dose: 40 meq Warfarin Sodium (Warfarin Sod 2.5 Mg Tab) 2.5 mg PO DAILY@1600 [facility] Stop: 10/26/23 15:59
[2023-09-26] MEDS ORDERED: FUROSEMIDE 20 MG TAB PO SCH (09:00)
--- NOTE | 2023-09-26 10:27 | Discharge Summary ---
Discharge Summary Date of Service September 26, 2023 Notes For Next Care Provider -Outpt BMP -Outpt Sleep Study Medication Changes From Visit -Amiodarone oral load - 400 mg po BID x 1 week; then 200 mg po per day -Continue Toprol XL 25 mg po per day -Continue Coumadin - target INR 2.5-3.5 -Start Lasix to 40 mg po per day -Kdur 20 meq po BID Admission HPI Per Admitting Provider Ms. Cleveland is a 63-year-old female with a past medical history of AVR (1987 on Coumadin), HTN, dyslipidemia, MADAI ( uses CPAP), and enlarged aorta that presented to the ED after being at an outpatient cardiology appointment and was noted to have a heart rate in the 160s and in a flutter. She reports that she has had an upper respiratory illness over the past 2 months and has been taking Robitussin almost every day. Follows with [email or web address]. Never has had AF/Flutter. Normally takes Amlodipine, but reports feeling heart palpitations and SOB for three weeks. She reports her fitbit was indicating arrhythmia, but she took it off. In the ED she was given a total of 10 mg Metoprolol IV; with some response, now in the 130s. Cardiology evaluated patient int he ED and was given 40 mg IV Lasix with a repeat ECHO order. Will reevaluate for possible cardioversion. She denies any DVT or PE history. INRs have been therapeutic ; today INR 4.0 Last INR check was therapeutic. Most recent ECHO 12/2021 aortic valve prosthesis gradients within normal limits; LV wall mildly concentric. EF 55-59%, Grade I DDx. Denies tobacco, alcohol and recreational drug use. WELLS score 1. No leukocytosis, mild hypokalemia 3.4, Phos critically low less than 1.0. BNP 549, troponin 10.1. Pt denies PEREA, dizziness, fever/chills, chest pain, palpitations, orthopnea, abdominal pain or tenderness, visual or auditory changes, hematochezia, N/V/D, hemoptysis, appetite changes, recent falls or trauma. ECHO results indicated a reduced EF 20%, after discussion with cardiology suspect patient in decompensated heart failure that likely has been occurring for the last 2 months. Cardiology will initiate IV amiodarone and determine additional beta-irma use based on her response. received Lasix 40 mg IV. Pt will be admitted for further evaluation and management. Please see A/P for further details. Admission Exam Per Admitting Provider Neuro: AAOx4, PERRLA, no aphagia, memory changes, CNII-XII grossly intact HEENT: head normocephalic, moist mucus membranes CV: S1/S2, (-) M/G/R, (-) edema, cap refill < 3 seconds Resp: Lungs CTA in all garcia. On RA GI: Abdomen S/NT/ND, Ax4 bowel sounds, (-) CVA tenderness Musculoskeletal: 5/5 B/L UE strength, 5/5 B/L LE strength. No gait disturbance Skin: (-) rashes , (-) erythema. Psych: euthymic mood Principal Dx & Hospital Course #1 = Principal Diagnosis (1) Tachycardia: (2) (HFpEF) heart failure with preserved ejection fraction: (3) Cough: (4) SOB (shortness of breath): (5) Hypokalemia: (6) History of transcatheter aortic valve replacement (TAVR): Plan Ms. Cleveland is a 63-year-old female with a past medical history of AVR (1987 on Coumadin), HTN, dyslipidemia, MADAI ( uses CPAP), and enlarged aorta that presented to the ED after being at an outpatient cardiology appointment and was noted to have a heart rate in the 160s and in a flutter. She reports that she has had an upper respiratory illness over the past 2 months and has been taking Robitussin almost every day. Follows with [facility]. Never has had AF/Flutter. Normally takes Amlodipine, but reports feeling heart palpitations and SOB for three weeks. She reports her fitbit was indicating arrhythmia, but she took it off. In the ED she was given a total of 10 mg Metoprolol IV; with some response, now in the 130s. Cardiology evaluated patient int he ED and was given 40 mg IV Lasix. 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 Patient currently on IV amiodarone and metoprolol, still sustaining heart rates in 120- 130s over the evening of 09/22 into 09/23. Course complicated by hypotension requiring bolus, with subsequent pulm congestion. Patient responded well to diuersis and BIPAP. On the morning of 09/24, patient underwent Cardioversion with subsequent return to sinus. Patient reports feeling notably improved since CV. On 09/25, patient went to fluoroscopy to assess valve, and noted normal valve function. On 09/26, patient overall doing well, voiding without issues, denying any acute concerns, eating well, and eager to go home. #Hypotension *stable -CTM off of diuresis -Plan for Metorpolol succinate 25mg daily #Acute heart failure with reduced ejection fraction #New onset Atrial fibrillation/flutter with RVR s/ cardioversion 09/24/2023, NSR Recent ECHO 2021: EF 55-59%, GIDD; ECHO 09/22/2023 with EF 20-25% CXR: Cardiomegaly with pulmonary vascular congestion., severe MVR, aortic root dilatation, global hypokinesis of LV received Metoprolol 5 mg IV x2, now on IV amiodarone + BB ECG: Atrial Flutter Rate 155 bpm. QTC: 487 09/22 Continue cohn for strict IOs - GDMT: *BetaB:Continue Metoprolol Succinate 25mg daily *RAAS: will add as tolerated, held given hypotension -Cardiology on consult, reviewed notes -Continue amiodarone 400mg BID load until 10/02, then 200mg daily -Avoid digoxin if possible given no presence of intracardiac device -Start 40mg lasix PO -Potassium supplementation -Simvastatin to atorvastatin 2/2 interaction with amiodarone -Warfain for AC iso mechanical valve: INR 2.6 -Resumed 2.5mg Warfarin #Aortic Valve Replacement, mechanical Chronic Stable AVR performed 1987; valve assessment limited with ECHO given shadowing; Cardiology considering possible eval of valve under fluoroscopy to assess function On Coumadin; INR goal 2.5-3.5 -Resume Warfarin uninterrupted #Hypokalemia *improved #Hypophosphatemia:*improved Replace lytes prn, K >4, M >2, P >3 #Cough *improved -likely related to congestive heart failure, reports URI like symptoms but afebrile Biofire negative -Symptom control, manage HFrEF above #HTN: Chronic stable -Discontinue home amlodipine Will introduce ACEi as tolerated #Aortic root dilatation -The aortic root and proximal ascending aorta are moderately enlarged. (4.1/4.5 cm) -Stable per echo 12/2021 #HLD: Chronic stable Continue atorvastatin #MADAI -Continue CPAP Discharge Exam Constitutional WD/WN, vitals as above Respiratory normal respiratory effort, lungs clear to auscultation Cardiovascular RRR, no murmur, no edema Musculoskeletal no cyanosis or clubbing, extremities motor strength /5 Updated Medication List Medication Instructions Recorded Confirmed Type amoxicillin 500 mg capsule 2,000 mg PO UD PRN prior to dental 10/01/18 09/22/23 History procedures loratadine 10 mg tablet 10 mg PO DAILY PRN Allergy Symptoms 10/01/18 09/22/23 History warfarin 5 mg tablet 2.5 mg PO QPM 10/01/18 09/22/23 History PreserVision AREDS 1 tab PO AMPM 09/22/23 09/22/23 History pobxuizpurex-vwhyjhqs-ouguaz tablet 1 tab PO QAM 09/22/23 09/22/23 History amiodarone 200 mg tablet See Rx Instructions .Route 09/26/23 Rx .COMPLEX #60 tabs atorvastatin 10 mg tablet 10 mg PO QAM #30 tabs 09/26/23 Rx furosemide 40 mg tablet (Lasix) 40 mg PO DAILY #30 tabs 09/26/23 Rx metoprolol succinate 25 mg 25 mg PO QAM #30 tabs 09/26/23 Rx tablet,extended release 24 hr potassium chloride 20 mEq 20 meq PO BID #60 tabs 09/26/23 Rx tablet,extended release(part/cryst) (Klor-Con M) Hospital Stay Data Consultations 09/22/23 12:27 ED Decision to Admit Stat 09/22/23 12:28 Consult Cardiology Routine 09/23/23 11:15 Consult Anesthesiology Routine Procedures Performed Operation Date: 09/25/23 10:00 Actual Procedures p Cineradiography w/Routine Exam - Neeraj Hope MD, PhD Diagnostic Imagining Performed 09/25/23 09:53 CL Cath Imgs for PACS use only Routine Pending Results Patient Have Any Pending Studies at Discharge: No Discharge Instructions Given to Patient (Per Discharging Provider) You came in with symptoms of shortness of breath and feeling not quite yourself. You were found to have atrial fibrillation and new onset heart failure. You underwent cardioversion on 09/24/2023, with return to normal rhythm. You were started on an antiarrhythmic to aid in keeping your heart in a normal rhythm. There were other medication adjustments detailed as follows: -Start Amiodarone 400mg twice daily until 10/02 ( two tablets twice a day, your next dose is this evening) -Then on 10/03, start 200mg amiodarone daily -Start Lasix 40mg daily, a water pill -Start Metoprolol Succinate 25mg XL daily -Discontinue home amlodipine -Discontinue home simvastatin, this was replaced with atorvastatin as it does not interact with Amiodarone -Start Potassium supplementation 20meq twice daily Your valve was assessed and appears to be functioning appropriately. Please continue home warfarin regimen and follow up with anticoagulation clinic post discharge. A referral for the Heart Failure clinic was made to ensure close follow up regarding heart failure monitoring An appointment with Cardiology will be made to ensure close follow up post- hospitalization Please follow up for labs in 1 week to check BMP (electrolytes) Please discuss repeat Sleep study with your primary care to ensure apnea is not a contributing factor to your recent atrial fibrillation Total Time Total Time Spent Total Time Spent (In Minutes): 45
[2023-09-26] MEDS ORDERED: FUROSEMIDE 20 MG TAB PO ONE (10:40)
[2023-09-26] MEDS ORDERED: WARFARIN SOD 2.5 MG TAB PO SCH (16:00)
[2023-09-27] MEDS ORDERED: FUROSEMIDE 40 MG TAB PO SCH (09:00)
== END 2023-09-26 14:36 | disposition home or self-care (01) | DRG 291 ==
LOC: ED 09:01 → SUATTDRO 12:28 → EDINP 12:28 → 2S 15:41